=== PATIENT | male | born 1950 | race Caucasian/White ===

== ENCOUNTER 2019-07-10 08:02 | Outpatient (CLI) | payer MEDICARE, SELFPAY ==
[2019-07-10 09:04] LABS: Alanine Aminotransferase 16 U/L (4-50); Albumin Level 4.2 g/dL (3.5-5.1); Alkaline Phosphatase 48 U/L (38-126); Aspartate Amino Transferase 16 U/L (17-59); Bilirubin,Total 0.5 mg/dL (0.2-1.3); Blood Urea Nitrogen 22 mg/dL (9-20); Calcium 9.8 mg/dL (8.4-10.2); Carbon Dioxide 29 mmol/L (22-30); Chloride 101 mmol/L (98-107); Estimated Glomerular Filt Rate > 60; Glucose 186 mg/dL (75-110); Potassium 3.9 mmol/L (3.4-5.0); Sodium 140 mmol/L (137-145)
[2019-07-10 09:14] LABS: Hemoglobin A1C 8.5 % (<5.7)
== END 2019-07-10 08:03 | disposition home or self-care (01) ==
PROVIDERS: PCP Family Medicine; Visit Provider Family Medicine
DX: E11.9 Type 2 diabetes mellitus without complications (principal)
CPT/HCPCS: 36415; 80053; 83036

== ENCOUNTER 2019-11-14 07:38 | Outpatient (CLI) | payer MEDICARE, BC, SELFPAY ==
[2019-11-14 08:18] LABS: Hematocrit 43.5 % (42.0-52.0); Hemoglobin 14.2 g/dL (14.0-18.0); Mean Corpuscular HGB Conc 32.6 g/dl (32-36); Mean Corpuscular Hemoglobin 31.1 pg (26-34); Mean Corpuscular Volume 95.2 fl (80-100); Platelet Count Result 207 k/mm3 (150-375); Red Blood Count 4.57 M/mm3 (4.6-6.20); Red Cell Distribution Width 13.2 % (11.5-14.5); White Blood Count 7.2 K/mm3 (4.5-10.0)
[2019-11-14 08:23] LABS: Add Urine Microscopic? YES; Appearance Urine Clear (Clear); Bilirubin Urine Negative (Negative); Blood Urine Negative (Negative); Color Urine Straw (Yellow); Glucose Urine UA 3+ mg/dL (Negative); Ketones Urine Negative (Negative); Leukocyte Esterase Ur Negative LEU/UL (NEGATIVE); Mucus Urine Rare /lpf; Nitrate Urine Negative (Negative); Protein Urine Negative (Negative); Urobilinogen Urine Negative mg/dL (<2.0); WBC Urine 0-3 /hpf (0-3)
[2019-11-14 08:32] LABS: Alanine Aminotransferase 15 U/L (4-50); Albumin Level 4.3 g/dL (3.5-5.1); Alkaline Phosphatase 62 U/L (38-126); Aspartate Amino Transferase 17 U/L (17-59); Bilirubin,Total 0.4 mg/dL (0.2-1.3); Blood Urea Nitrogen 26 mg/dL (9-20); Calcium 9.2 mg/dL (8.4-10.2); Carbon Dioxide 25 mmol/L (22-30); Chloride 103 mmol/L (98-107); Cholesterol 162 mg/dL (0-200); Estimated Glomerular Filt Rate 55; Glucose 183 mg/dL (75-110); HDL Direct 42 mg/dL; Potassium 4.2 mmol/L (3.4-5.0); Sodium 137 mmol/L (137-145); Triglycerides 100 mg/dL (<150)
[2019-11-14 08:34] LABS: Hemoglobin A1C 8.4 % (<5.7)
[2019-11-14 08:42] LABS: LDL Cholesterol Direct 103 mg/dL
[2019-11-14 08:46] LABS: Iron 82 ug/dL (49-181)
[2019-11-14 08:48] LABS: Creatinine Urine 107.6 mg/dL
[2019-11-14 08:52] LABS: MALB Creatinine Ratio 9.2 mg/g (0-30); Microalbumin Urine Random 9.9 mg/L (0-16.7)
[2019-11-14 08:56] LABS: Percent Iron Saturation 22 % (20-50)
== END 2019-11-14 07:39 | disposition home or self-care (01) ==
LOC: ANHLAB 07:43
PROVIDERS: PCP Family Medicine; Visit Provider Family Medicine
DX: E78.2 Mixed hyperlipidemia (principal); E11.9 Type 2 diabetes mellitus without complications; I10 Essential (primary) hypertension; D64.9 Anemia, unspecified; R53.83 Other fatigue
CPT/HCPCS: 36415; 80053; 80061; 81001; 82043; 82607; 83036; 83540; 83550; 84443; 85027

== ENCOUNTER 2020-03-08 11:37 | Emergency (ER) | payer MEDICARE, BC, SELFPAY ==
--- NOTE | ~2020-03-08 | US_ITS ---
EXAMINATION:US venous doppler LE LT INDICATION:Left posterior knee pain TECHNIQUE: Multiple grayscale, color flow and Doppler images of the left lower extremity deep venous systems were obtained and reviewed. COMPARISON:No prior studies for comparison. FINDINGS: The common femoral, superficial femoral and popliteal veins demonstrate normal respiratory variation, augmentation and compressibility. Color flow is also seen within the posterior tibial, pe roneal, greater saphenous and profunda veins. IMPRESSION: 1: No lower extremity deep venous thrombosis. Reviewed, dictated and finalized at location A.
--- NOTE | ~2020-03-08 | XR_ITS ---
XR knee LT 3V 03/08/2020 12:17 Indication: Left knee pain Procedure: 3 views left knee Comparison: No prior studies for comparison. Findings: Mild patellofemoral compartment osteoarthritis. No fracture or traumatic malalignment. No s ignificant joint effusion. There are vascular calcifications. Impression: 1: No acute bone or joint abnormality. Reviewed, dictated and finalized at location A. Impression: 1: No acute bone or joint abnormality.
[2020-03-08 11:40] VITALS: BP 153/69; PULSE 94; RESP 20; TEMP 36.8; O2SAT 99
[2020-03-08] MEDS: KETOROLAC (*BKC) 60 MG/2 ML VIAL IM (12:58)
--- NOTE | 2020-03-08 13:10 | ED.LOWEXIN ---
HPI - Extremity Injury (Lower) General Chief Complaint: Extremity Injury, Lower <Patricia Jimenez PA-C - Last Filed: 03/08/20 14:14> Stated Complaint: Left Knee Pain <CHICHO Eden Last Filed: 03/08/20 14:14> Time Seen by Provider: 03/08/20 12:11 <Patricia Jimenez PA-C - Last Filed: 03/08/20 14:14> Source: patient <CHICHO Eden Last Filed: 03/08/20 14:14> Mode of arrival: wheelchair <CHICHO Eden Last Filed: 03/08/20 14:14> Limitations: no limitations <CHICHO Eden Last Filed: 03/08/20 14:14> History of Present Illness HPI Narrative: This is a 69 year old male that presents to the ER for left posterior knee pain x 2 days. No known injury or trauma. Reports it started after he was playing golf. He has taken some over the counter pain medication with little relief. Pain is worse with movement and relieved with rest. Denies fever, edema or erythema. <CHICHO Eden Last Filed: 03/08/20 14:14> Related Data Home Medications: Home Medications Medication Instructions Recorded Confirmed aspirin [Adult Low Dose Aspirin] 81 mg PO DAILY 03/08/20 <CHICHO Eden Last Filed: 03/08/20 14:14> Allergies/Adverse Reactions: Allergies Allergy/AdvReac Type Severity Reaction Status Date / Time No Known Allergies Allergy Verified 03/08/20 11:41 <CHICHO Edne Last Filed: 03/08/20 14:14> Review of Systems Review of Systems: Narrative: CONSTITUTIONAL: Denies fever SKIN: Denies rash MUSCULOSKELETAL: Reports joint pain, and myalgia. <CHICHO Eden Last Filed: 03/08/20 14:14> All systems reviewed & are unremarkable except as noted in HPI and below <CHICHO Eden Last Filed: 03/08/20 14:14> PMFSH Past Medical History Medical History: Medical History (Updated 03/08/20 @ 14:09 by Patricia Jimenez PA-C) Diabetes mellitus type 2, uncontrolled Essential (primary) hypertension History of colon polyps Long-term insulin use Pure hypercholesterolemia Type 2 diabetes mellitus with hyperglycemia, without long-term current use of insulin <Patricia Jimenez PA-C - Last Filed: 03/08/20 14:14> Surgical History Surgical History: Surgical History Status post right inguinal hernia repair <Patricia Jimenez PA-C - Last Filed: 03/08/20 14:14> Family History Family History: Family History Sibling Family history of type 1 diabetes mellitus <Patricia Jimenez PA-C - Last Filed: 03/08/20 14:14> Social History Social History: Social History Smoking status: Light tobacco smoker Tobacco type: cigars Second hand tobacco smoke exposure: No Alcohol intake: current Drinks per week: 3 Substance use: never Substance use type: does not use Gender identity (if verbalized by the patient): Male <Patricia Jimenez PA-C - Last Filed: 03/08/20 14:14> Exam Narrative: Exam Narrative: GENERAL: Well-appearing, well-nourished, and in no acute distress. HEAD: Normocephalic, atraumatic. EYES: EOMI. CHEST: Clear to auscultation. No respiratory distress. No wheezes rales or rhonchi HEART: Regular rate and rhythm. No murmur heard. Normal peripheral pulses. EXTREMITIES: Normal range of motion. No edema or erythema. Normal DP pulses. Normal sensation SKIN: Warm, dry, no rash. NEURO: No focal deficits. Alert and oriented x3. PSYCH: Normal mood and affect <Patricia Jimenez PA-C - Last Filed: 03/08/20 14:14> Course Vital Signs Vital signs: Vital Signs Temperature 36.8 C 03/08/20 11:40 Pulse Rate 94 03/08/20 11:40 Respiratory Rate 20 03/08/20 11:40 Blood Pressure 153/69 H 03/08/20 11:40 Pulse Oximetry 99 03/08/20 11:40 Temperature 36.8 C 03/08/20 11:40 Pulse Rate 94 03/08/20 11:40
[2020-03-08 15:36] VITALS: BP 156/71; PULSE 96; RESP 20; O2SAT 99
== END 2020-03-08 15:00 | disposition home or self-care (01) ==
PROVIDERS: Emergency Provider Emergency Medicine; PCP Family Medicine
DX: S83.92XA Sprain of unspecified site of left knee, initial encounter (principal); E11.9 Type 2 diabetes mellitus without complications; I10 Essential (primary) hypertension; Z79.4 Long term (current) use of insulin; E78.00 Pure hypercholesterolemia, unspecified; Z86.010 Personal history of colon polyps; F17.290 Nicotine dependence, other tobacco product, uncomplicated; X58.XXXA Exposure to other specified factors, initial encounter; Y93.53 Activity, golf
CPT/HCPCS: 73562; 93971; 96372; 99284; J1885

== ENCOUNTER 2020-03-15 09:05 | Outpatient (CLI) | payer MEDICARE, BC, SELFPAY ==
[2020-03-15 09:54] LABS: Hemoglobin A1C 7.7 % (<5.7)
[2020-03-15 10:01] LABS: Alanine Aminotransferase 15 U/L (4-50); Albumin Level 4.6 g/dL (3.5-5.1); Alkaline Phosphatase 66 U/L (38-126); Anion Gap 12 mmol/L (8-16); Aspartate Amino Transferase 18 U/L (17-59); Bilirubin,Total 0.5 mg/dL (0.2-1.3); Blood Urea Nitrogen 30 mg/dL (9-20); Calcium 9.8 mg/dL (8.4-10.2); Carbon Dioxide 26 mmol/L (22-30); Chloride 103 mmol/L (98-107); Estimated Glomerular Filt Rate 55; Glucose 172 mg/dL (75-110); Potassium 3.9 mmol/L (3.4-5.0); Sodium 141 mmol/L (137-145)
== END 2020-03-15 09:06 | disposition home or self-care (01) ==
PROVIDERS: PCP Family Medicine; Visit Provider Family Medicine
DX: E11.9 Type 2 diabetes mellitus without complications (principal)
CPT/HCPCS: 36415; 80053; 83036

== ENCOUNTER 2020-07-17 09:32 | Outpatient (CLI) | payer MEDICARE, BC, SELFPAY ==
[2020-07-17 10:02] LABS: Alanine Aminotransferase 17 U/L (4-50); Albumin Level 4.6 g/dL (3.5-5.1); Alkaline Phosphatase 60 U/L (38-126); Anion Gap 10 mmol/L (8-16); Aspartate Amino Transferase 19 U/L (17-59); Bilirubin,Total 0.8 mg/dL (0.2-1.3); Blood Urea Nitrogen 30 mg/dL (9-20); Calcium 9.8 mg/dL (8.4-10.2); Carbon Dioxide 29 mmol/L (22-30); Chloride 101 mmol/L (98-107); Estimated Glomerular Filt Rate 50; Glucose 176 mg/dL (75-110); Potassium 3.7 mmol/L (3.4-5.0); Sodium 140 mmol/L (137-145)
[2020-07-17 10:06] LABS: Hemoglobin A1C 7.9 % (<5.7)
== END 2020-07-17 09:33 | disposition home or self-care (01) ==
PROVIDERS: PCP Family Medicine; Visit Provider Nurse Practitioner Family
DX: E11.65 Type 2 diabetes mellitus with hyperglycemia (principal); I10 Essential (primary) hypertension; Z79.4 Long term (current) use of insulin
CPT/HCPCS: 36415; 80053; 83036

== ENCOUNTER 2020-11-20 07:22 | Outpatient (CLI) | payer MEDICARE, BC, SELFPAY ==
[2020-11-20 08:03] LABS: Hemoglobin A1C 8.2 % (<5.7)
[2020-11-20 08:06] LABS: Alanine Aminotransferase 15 U/L (4-50); Albumin Level 4.4 g/dL (3.5-5.1); Alkaline Phosphatase 57 U/L (38-126); Anion Gap 10 mmol/L (8-16); Aspartate Amino Transferase 18 U/L (17-59); Bilirubin,Total 0.5 mg/dL (0.2-1.3); Blood Urea Nitrogen 23 mg/dL (9-20); Calcium 9.9 mg/dL (8.4-10.2); Carbon Dioxide 28 mmol/L (22-30); Chloride 104 mmol/L (98-107); Estimated Glomerular Filt Rate 60; Glucose 162 mg/dL (75-110); Potassium 3.3 mmol/L (3.4-5.0); Sodium 142 mmol/L (137-145)
== END 2020-11-20 07:23 | disposition home or self-care (01) ==
PROVIDERS: PCP Family Medicine; Visit Provider Family Medicine
DX: E11.9 Type 2 diabetes mellitus without complications (principal); E78.00 Pure hypercholesterolemia, unspecified; I10 Essential (primary) hypertension; Z79.4 Long term (current) use of insulin
CPT/HCPCS: 36415; 80053; 83036

== ENCOUNTER 2021-03-25 07:35 | Outpatient (CLI) | payer MEDICARE, BC, SELFPAY ==
[2021-03-25 08:20] LABS: Alanine Aminotransferase 25 U/L (4-50); Albumin Level 4.3 g/dL (3.5-5.1); Alkaline Phosphatase 49 U/L (38-126); Anion Gap 10 mmol/L (8-16); Aspartate Amino Transferase 24 U/L (17-59); Bilirubin,Total 0.5 mg/dL (0.2-1.3); Blood Urea Nitrogen 22 mg/dL (9-20); Calcium 9.4 mg/dL (8.4-10.2); Carbon Dioxide 27 mmol/L (22-30); Chloride 104 mmol/L (98-107); Cholesterol 133 mg/dL (0-200); Estimated Glomerular Filt Rate > 60; Glucose 150 mg/dL (65-110); HDL Direct 46 mg/dL; Potassium 3.5 mmol/L (3.4-5.0); Sodium 141 mmol/L (137-145); Triglycerides 95 mg/dL (<150)
[2021-03-25 08:31] LABS: LDL Cholesterol Direct 65 mg/dL
[2021-03-25 08:43] LABS: Hematocrit 41.8 % (42.0-52.0); Hemoglobin 13.9 g/dL (14.0-18.0); Mean Corpuscular HGB Conc 33.3 g/dl (32-36); Mean Corpuscular Hemoglobin 31.4 pg (26-34); Mean Corpuscular Volume 94.6 fl (80-100); Mean Platelet Volume 11.5 fl (7.4-10.4); Platelet Count Result 200 k/mm3 (150-375); Red Blood Count 4.42 M/mm3 (4.6-6.20); Red Cell Distribution Width 13.8 % (11.5-14.5); White Blood Count 6.1 K/mm3 (4.5-10.0)
[2021-03-25 09:06] LABS: Add Urine Microscopic? YES; Appearance Urine Clear (Clear); Bilirubin Urine Negative (Negative); Blood Urine Negative (Negative); Color Urine Yellow (Yellow); Glucose Urine UA 2+ mg/dL (Negative); Ketones Urine Negative (Negative); Leukocyte Esterase Ur Negative LEU/UL (NEGATIVE); Mucus Urine Rare /lpf; Nitrate Urine Negative (Negative); Protein Urine Negative (Negative); RBC Urine 0-2 /hpf (0-2); Specific Grav Ur 1.023 (1.001-1.035); Urobilinogen Urine Negative mg/dL (<2.0); WBC Urine 0-3 /hpf (0-3)
[2021-03-25 09:27] LABS: Creatinine Urine 138.4 mg/dL
[2021-03-25 09:46] LABS: Microalbumin Urine Random 31.8 mg/L (0-16.7)
== END 2021-03-25 07:36 | disposition home or self-care (01) ==
PROVIDERS: PCP Family Medicine; Visit Provider Family Medicine
DX: E11.9 Type 2 diabetes mellitus without complications (principal); E78.00 Pure hypercholesterolemia, unspecified; I10 Essential (primary) hypertension; Z79.4 Long term (current) use of insulin
CPT/HCPCS: 36415; 80053; 80061; 81001; 82043; 83036; 84443; 85027

== ENCOUNTER 2021-07-31 07:07 | Outpatient (CLI) | payer MEDICARE, BC, SELFPAY ==
[2021-07-31 07:38] LABS: Alanine Aminotransferase 16 U/L (4-50); Albumin Level 4.3 g/dL (3.5-5.1); Alkaline Phosphatase 49 U/L (38-126); Anion Gap 8 mmol/L (8-16); Aspartate Amino Transferase 27 U/L (17-59); Bilirubin,Total 0.6 mg/dL (0.2-1.3); Blood Urea Nitrogen 26 mg/dL (9-20); Calcium 9.5 mg/dL (8.4-10.2); Carbon Dioxide 32 mmol/L (22-30); Chloride 101 mmol/L (98-107); Estimated Glomerular Filt Rate 60; Glucose 121 mg/dL (65-110); Potassium 3.3 mmol/L (3.4-5.0); Sodium 141 mmol/L (137-145)
[2021-07-31 07:53] LABS: Hemoglobin A1C 6.7 % (<5.7)
== END 2021-07-31 07:08 | disposition home or self-care (01) ==
PROVIDERS: PCP Family Medicine; Visit Provider Family Medicine
DX: E11.9 Type 2 diabetes mellitus without complications (principal); Z79.4 Long term (current) use of insulin
CPT/HCPCS: 36415; 80053; 83036

== ENCOUNTER 2021-08-05 09:21 | Observation (INO) | payer MEDICARE, BC, SELFPAY ==
[2021-08-05] VITALS (29 sets, daily range): BP systolic 123–158; BP diastolic 63–81; PULSE 72–119; RESP 14–35; TEMP 36.4–36.6; O2SAT 94–99; BMI 40.2
--- NOTE | ~2021-08-05 | MR_ITS ---
EXAMINATION: MR brain/brain stem wo con DATE: 08/06/2021 12:45 INDICATION: Transient right peripheral vision loss. Right-sided numbness. TECHNIQUE: Magnetic resonance imaging (MRI) of the brain and brainstem was performed without intraven ous contrast. Sequences included sagittal and axial T1-weighted FSE, axial diffusion-weighted FS EPI, axial T2*-weighted GRE, axial T2-weighted FLAIR Propeller, and axial T2-weighted Propeller. Apparent diffusion coefficient (ADC) maps were created. COMPARISON: Head CT 08/05/2021 FINDINGS: There are scattered areas of nonspecific increased T2-weighted signal intensity in the cere bral white matter. There is an old infarct in right frontal lobe. There are small old infarcts in rig ht cerebellum. There is no intracranial hemorrhage, acute infarction, or abnormal intracranial mass l esion. The ventricles are normal in size. The orbits are normal. The paranasal sinuses are clear. The mastoid air cells are normal. IMPRESSION: 1. 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 2. Mild nonspecific cerebral white matter disease, which likely represents chronic small vessel ische nawaf disease. Reviewed, dictated and finalized at location A. NER IMPRESSION: 1. 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 2. Mild nonspecific cerebral white matter disease, which likely represents stave inspector nicole small vessel ischemic disease.
--- NOTE | ~2021-08-05 | XR_ITS ---
EXAMINATION: XR chest 1V portable EXAM DATE: 08/05/2021 09:46 INDICATION: R sided weakness. TECHNIQUE: Portable AP frontal chest x-ray was obtained. Comparison is made to prior examination from 02/27/2017. FINDINGS: The lungs are clear. There are no pleural effusions. Cardiac silhouette is prominent but magnified on this AP technique. There is no pneumothorax suspected. The bones and soft tissues are unremarkable. IMPRESSION: No acute cardiopulmonary findings. Reviewed, dictated and finalized at location A. HETIC DEPARTMENT SUPERVISOR
--- NOTE | ~2021-08-05 | CT_ITS ---
EXAMINATION: CTA brain carotid EXAM DATE: 08/05/2021 10:51 INDICATION: R sided weakness. Right eye vision loss, right arm numbness TECHNIQUE: Noncontrast head CT. Spiral CTA of the carotid arteries was performed with intravenous i njection 100 cc of Omnipaque 350. Axial, coronal, sagittal reformatted images reviewed. Additional r eformatted images created on dedicated 3-D workstation. NASCET comparable standard used to assess th e degree of arterial stenosis. Spiral CT angiogram cerebral arteries performed with the same intrave nous injection of contrast. Source images of the brain CTA transferred to dedicated workstation for 3 -D rotational image creation. Coronal, sagittal maximum intensity pixel images also reviewed. The d ose-length product (DLP) for this examination was 1833.72 mGy-cm. The exposure was tailored accordi ng to patient size, and iterative reconstruction (ASIR) was used as additional dose reduction techniq ue. There is no prior study for comparison. FINDINGS: Mild right, minimal left carotid bulb arteriosclerosis, 0% stenosis bilaterally. The left v ertebral artery is dominant. Along the left parasellar portion of the ICA there is short segment 50% stenosis. Circumferential arterial sclerosis of both carotid siphons, only mild stenosis. There is n o carotid or vertebral basilar arterial dissection or fibromuscular dysplasia. There are no cerebral artery aneurysms. There is symmetric cerebral artery arborization. The sagittal, transverse and sigmo id sinuses enhance normally, no venous sinus thrombosis. Internal cerebral veins also enhance normall y. There is no acute intraparenchymal hemorrhage. No evidence of intraparenchymal brain mass lesion. N o evidence of acute infarction. There is mild periventricular and subcortical hypodensity, nonspecifi c but probably related to small vessel ischemic disease. There is no mass effect or midline shif t. There is no obstructive hydrocephalus suspected. There are no extra-axial collections. Incidental Findings: Mild cervical spondylosis. IMPRESSION: 1. No acute carotid or intracranial findings. 2. Bilateral carotid bulb 0% stenosis. 3. Short segment left parasellar ICA 50% stenosis. 4. Mild microangiopathy. Reviewed, dictated and finalized at location A. RMEDIATE ACCOUNTANT
--- NOTE | 2021-08-05 09:30 | ECG_ITS ---
Measurements Intervals [place] Rate: 93 P: NV: 0 QRS: 7 QRSD: 89 T: 0 QT: 353 QTc: 439 Interpretive Statements ATRIAL FIBRILLATION WITH ABERRANT CONDUCTION OR VENTRICULAR PREMATURE COMPLEXES ABNORMAL ECG NO PREVIOUS ECG AVAILABLE FOR COMPARISON Electronically Signed On 08-05-2021 13:22:48 TITLE CAMERA OPERATOR by Delgado Casey M.D.
--- NOTE | 2021-08-05 09:34 | ED.GENADULT ---
HPI - General Adult General Chief complaint: Neuro Symptoms/Deficit Stated complaint: R EYE VISION LOSS Time Seen by Provider: 08/05/21 09:30 Source: RN notes reviewed History of Present Illness HPI narrative: Patient presents emergency department from home for vision loss. Patient states approximately 8 AM he began to experience vision loss out of the right side of his right eye as well as numbness in his right arm and right face states that this began approximately 8 AM and is now resolved he denies any weakness over on the right side denies any fevers or chills chest pain shortness of breath abdominal pain nausea vomiting or any other symptoms. States vision is back to normal at this time patient denies having any weakness in the right arm or leg Related Data Home Medications Medication Instructions Recorded Confirmed aspirin [Adult Low Dose Aspirin] 81 mg PO DAILY 03/08/20 04/01/21 insulin glargine [Basaglar KwikPen 36 unit SUB-Q QPM 08/05/21 U-100 Insulin] Allergies Allergy/AdvReac Type Severity Reaction Status Date / Time No Known Allergies Allergy Verified 04/01/21 08:43 Review of Systems Review of Systems: Gen.: Denies fevers or chills Eyes: See HPI ENT: Denies congestion Respiratory: Denies shortness of breath or cough CV: Denies chest pain or palpitations GI: Denies abdominal pain nausea, emesis or diarrhea Musculoskeletal: Denies back pain or muscle pain Neuro: Reports right-sided numbness Skin: Denies rash Except as documented, all other systems reviewed and negative PMF Past Medical History Medical History Essential (primary) hypertension History of colon polyps Long-term insulin use Obesity Pure hypercholesterolemia Type 2 diabetes mellitus with hyperglycemia, without long-term current use of insulin Surgical History Surgical History Status post right inguinal hernia repair Family History Family History Sibling Family history of type 1 diabetes mellitus Social History Social History Years smoked: 10 Smoking status: Current some day smoker Tobacco type: cigars Second hand tobacco smoke exposure: No Alcohol intake: current Drinks per week: 3 Substance use: never Substance use type: does not use Gender identity (if verbalized by the patient): Male Sexual Orientation (if Verbalized by the Patient): Straight or Heterosexual Exam Narrative: APPEARANCE: No acute distress, nontoxic, resting in bed HEENT: Normocephalic, atraumatic, OMM, TMs clear bilaterally EYES: PERRL, EOMI NECK: Supple, nontender, full range of motion without pain, no meningismus RESPIRATORY: No respiratory distress, clear to auscultation bilaterally with no rhonchi wheezing or rales CARDIOVASCULAR: RRR s murmur ABDOMINAL: Soft, nontender, nondistended MUSCULOSKELETAL: Moves all extremities. No clubbing, cyanosis or edema. NEURO: A and O ?3, following commands, speech normal, cranial nerves II through XII grossly intact,muscle strength 5 out of 5 bilateral upper and lower extremities, all visual lieberman intact SKIN:: Warm, dry. Normal Color PSYCHIATRIC: Normal affect/mood Course Course Emergency Course: Discussed with Dr. Najera recommends anticoagulation for A. fib and will follow as inpatient Discussed with Dr. Casey agrees with consult request Jian Gonzales for Dr. Treviño agrees with admission Discussed with patient and family results of workup and diagnosis. Discussed need for admission. Patient and family understand and agree to current treatment plan Vital Signs Vital signs: Vital Signs Temperature 97.5 F L 08/05/21 09:21 Pulse Rate 106 H 08/05/21 09:21 Respiratory Rate 22 H 08/05/21 09:21 Blood Pressure 158/72 H 08/05/21 09:21 Pulse Oximetry 99
[2021-08-05 09:56] LABS: Basophils Absolute Auto 0.1 K/mm3 (0.0-0.1); Basophils Percent Auto 0.8 % (0.2-1.2); Eosinophils Absolute Auto 0.2 K/mm3 (0-0.3); Eosinophils Percent Auto 3.2 % (0-4.4); Hematocrit 49.6 % (42.0-52.0); Hemoglobin 16.2 g/dL (14.0-18.0); Immature Granulocyte Absolute 0.04 K/mm3 (0.00-0.031); Immature Granulocyte Percent A 0.6 % (0-0.5); Lymphocytes Absolute Auto 2.37 K/mm3 (0.9-3.2); Lymphocytes Percent Auto 36.5 % (18.3-44.2); Mean Corpuscular HGB Conc 32.7 g/dl (32-36); Mean Corpuscular Hemoglobin 31.5 pg (26-34); Mean Corpuscular Volume 96.3 fl (80-100); Mean Platelet Volume 10.7 fl (7.4-10.4); Monocytes Absolute Auto 0.6 K/mm3 (0.1-0.6); Monocytes Percent Auto 8.6 % (2.6-8.5); Neutrophils Absolute Auto 3.3 K/mm3 (1.3-6.7); Neutrophils Percent Auto 50.3 % (45.5-73.1); Platelet Count Result 198 k/mm3 (150-375); Red Blood Count 5.15 M/mm3 (4.6-6.20); Red Cell Distribution Width 13.5 % (11.5-14.5); White Blood Count 6.5 K/mm3 (4.5-10.0)
[2021-08-05 10:06] LABS: Partial Thromboplastin Time 26.9 SECONDS (22.3-36.8); Prothrombin Time 12.4 Seconds (11.1-14.7)
[2021-08-05 10:14] LABS: Alanine Aminotransferase 19 U/L (4-50); Albumin Level 4.9 g/dL (3.5-5.1); Alkaline Phosphatase 58 U/L (38-126); Anion Gap 12 mmol/L (8-16); Aspartate Amino Transferase 23 U/L (17-59); Bilirubin,Total 0.7 mg/dL (0.2-1.3); Blood Urea Nitrogen 17 mg/dL (9-20); Calcium 9.8 mg/dL (8.4-10.2); Carbon Dioxide 24 mmol/L (22-30); Chloride 103 mmol/L (98-107); Estimated CRCL calculation 72 ml/min; Estimated Glomerular Filt Rate > 60; Glucose 151 mg/dL (65-110); Potassium 3.6 mmol/L (3.4-5.0); Sodium 139 mmol/L (137-145)
[2021-08-05 10:26] LABS: Troponin I < 0.012 ng/mL (0.000-0.034)
[2021-08-05] MEDS: RIVAROXABAN 20 MG TABLET PO (13:36)
--- NOTE | 2021-08-05 14:48 | WPDNEUROPN ---
Progress Note: A&P Additional Plan 1continue xarelto 2.obtain mri brain3.considering intracranial stenosis needs to comply with atorvastatin and particularly higher dosage Subjective Date/time seen: 08/05/21 14:48 71 years old presented to emergency room with information that around 8:00 a.m. he lost vision out of the right side of his right eye along with the numbness in right upper extremity and right side of the face which subsequently resolved and had no associated weakness of the right side and also with no history of recent generalized symptomatology, patient has been taking aspirin 81 mg daily, and is has insulin-dependent diabetic, at present everyday smoker of cigars also drinks 3 drinks per week and does not have any substance abuse, noted to have atrial fibrillation in the emergency room was started on the anticoagulation that is Xarelto, chest x-ray negative, head and neck CTA negative except short segment left parasellar ICA 50% stenosis and mild microangiopathy medications particularly included atorvastatin 20 mg daily losartan 50 mg daily amlodipine 10 mg daily and aspirin 81 mg daily in addition to metformin PO bleeders own as an outpatient Review of Systems Review of Systems: All systems reviewed & are unremarkable except as noted in HPI and below Objective Data Vital Signs Vital Signs: Vital Signs - 24 hr 08/05/21 09:21 08/05/21 10:30 08/05/21 11:19 Temperature 36.4 C L Pulse Rate 106 H 92 91 Respiratory Rate 22 H 14 16 Blood Pressure 158/72 H 131/63 Pulse Oximetry 99 97 98 08/05/21 11:30 08/05/21 11:41 08/05/21 11:45 Temperature Pulse Rate 92 119 H 88 Respiratory Rate 29 H 27 H 23 H Blood Pressure 128/72 Pulse Oximetry 97 97 97 08/05/21 11:46 08/05/21 12:00 08/05/21 12:01 Temperature Pulse Rate 85 102 H 98 Respiratory Rate 22 H 19 21 H Blood Pressure 126/72 127/81 Pulse Oximetry 97 97 97 08/05/21 12:15 08/05/21 12:16 08/05/21 12:31 Temperature Pulse Rate 89 93 92 Respiratory Rate 25 H 21 H 18 Blood Pressure 123/69 Pulse Oximetry 98 97 97 08/05/21 12:45 08/05/21 13:00 08/05/21 13:01 Temperature Pulse Rate 100 87 109 H Respiratory Rate 24 H 19 19 Blood Pressure 130/73 Pulse Oximetry 97 97 98 08/05/21 13:19 08/05/21 13:37 Temperature Pulse Rate 96 95 Respiratory Rate 21 H 35 H Blood Pressure Pulse Oximetry 97 Meds/Results Radiology Results: ITS Impressions Chest X-Ray 08/05/21 09:50 IMPRESSION: No acute cardiopulmonary findings. Head/Neck CTA 08/05/21 11:02 IMPRESSION: 1. No acute carotid or intracranial findings. 2. Bilateral carotid bulb 0% stenosis. 3. Short segment left parasellar ICA 50% stenosis. 4. Mild microangiopathy. Labs Labs: Laboratory Results - last 24 hr 08/05/21 08/05/21 08/05/21 09:39 09:39 09:39 WBC 6.5 RBC 5.15 Hgb 16.2 Hct 49.6 MCV 96.3 MCH 31.5 MCHC 32.7 RDW 13.5 Plt Count 198 MPV 10.7 H Immature Gran % (Auto) 0.6 H Neut % (Auto) 50.3 Lymph % (Auto) 36.5 [place] % (Auto) 8.6 H Eos % (Auto) 3.2 Baso % (Auto) 0.8 Lymph # (Auto) 2.37 [place] # (Auto) 0.6 Eos # (Auto) 0.2 Baso # (Auto) 0.1 Abs Immat Gran (auto) 0.04 H Absolute Neuts (auto) 3.3 Absolute Nucleated RBC 0.0 Nucleated RBC % 0.0 PT 12.4 INR 1.0 APTT 26.9 Sodium 139 Potassium 3.6 Chloride 103 Carbon Dioxide 24 Anion Gap 12 BUN 17 Creatinine 1.00 Estim Creat Clear Calc 72 Estimated GFR > 60 Glucose 151 H Calcium 9.8 Total Bilirubin 0.7 AST 23 ALT 19 Alkaline Phosphatase 58 Troponin I < 0.012 Total Protein 8.0 Albumin 4.9
--- NOTE | 2021-08-05 15:30 | PM.IMHP ---
H&P: HPI History of Present Illness Date/Time: 08/05/21 15:30 Chief Complaint: Right arm numbness and vision loss. Narrative: This is a 71-year-old male with insulin-dependent diabetes who presented to the emergency department via EMS from home for evaluation of right arm numbness and vision loss. The patient reports that at approximately 08:00 he had progressive vision loss out of periphery his right eye associated with numbness in the right side of his face and arm. He felt a bit nauseated at that time as well. The symptoms lasted an hour or less and they had nearly resolved by the time that he arrived to the emergency department. CTA of the head and neck showed no acute carotid or intracranial findings with 0% bilateral carotid bulb stenosis though there was a short segment along the left parasellar portion of the ICA which showed showed 50% stenosis. He was also found to be in atrial fibrillation which is a new diagnosis for the patient, of which he has no symptoms. Specifically he has not had sensations of racing heart, palpitations, or fluttering in the chest. At the time my evaluation he is resting comfortably and he has no complaints. He denies headache, vertigo, auditory changes, current visual changes, facial droop, dysarthria, dysphagia, focal weakness, and paresthesias. He also denies chest pain, pleuritic pain, and shortness of breath. Review of Systems Review of Systems: Twelve systems were reviewed. No fever, chills, or sweats. No recent cold or flu symptoms. No history of sleep apnea however his thinks he likely does have sleep apnea as she has witnesses of to 22nd periods of apnea while the patient sleeps. He also snores quite heavily. He drinks perhaps 2 cups of coffee or tea a day and perhaps a couple of diet sodas. He will have 2 or 3 alcoholic beverages when golfing. He denies orthopnea, paroxysmal nocturnal dyspnea, and lower extremity edema. Except as documented, all other systems were reviewed and are negative. [facility] Past Medical History Medical History Essential (primary) hypertension History of colon polyps Insulin dependent type 2 diabetes mellitus Pure hypercholesterolemia Surgical History Surgical History (Updated 08/05/21 @ 14:34 by Janet Cervantes PA-C) History of right inguinal hernia repair Family History Family History Sibling Family history of type 1 diabetes mellitus Social History Social History (Updated 08/05/21 @ 20:58 by Janet Cervantes PA-C) Social History: Surrogate decision maker: Denise Ly, spouse. Code status: Full code. Years smoked: 10 Smoking status: Current some day smoker Tobacco type: cigars Second hand tobacco smoke exposure: No Additional smoking assessment comments: Pt smokes occasional cigar while on the golf [place]. Alcohol intake: current Drinks per week: 3 Substance use: never Substance use type: does not use Living arrangements: with family Additional living arrangements comments: The patient lives with his in [place]. Occupation/Education: retired Additional occupation/education comments: Retired from working in a [employer]. Meds Home Medications and Allergies Home Medications Medication Instructions Recorded Confirmed Type lancets 28 gauge #200 each 01/07/20 08/05/21 Rx aspirin [Adult Low Dose Aspirin] 81 mg PO BID 03/08/20 08/05/21 History pen needle, diabetic 29 gauge x See Rx Instructions .ROUTE 12/01/20 08/05/21 Rx 1/2 .COMPLEX #100 syringe blood sugar diagnostic See Rx Instructions .ROUTE 01/05/21 08/05/21 Rx .COMPLEX #200 strip losartan 50 mg tablet 50 mg PO DAILY #90 tablet 06/01/21 08/05/21 Rx amlodipine 10 mg PO DAILY 08/05/21 08/05/21 History atorvastatin 20 mg PO HS 08/05/21 08/05/21 History hydrochlorothiazide 25 mg PO DAILY 08/05/21 08/05/21 History insulin glargine [
[2021-08-05 16:23] LABS: Troponin I < 0.012 ng/mL (0.000-0.034)
[2021-08-05 16:48] LABS: Glucose Point of Care 182 mg/dl (65-105)
--- NOTE | 2021-08-05 17:24 | ADMGEN ---
This patient, Kevin Ly, was admitted to IMU Room 203-01. Patient/family oriented to hospital policies and general routines including ID bracelet, bed and alarms, visiting hours, pain management, procedures, bathroom and other care routines, personal items, smoking policy, room service/diet, and visiting hours. Information on how to activate the Rapid Response Team has been discussed. Patient/Family are encouraged to report perceived risks to care and to ask questions if they do not understand what they are told or what they should do.
[2021-08-05 18:58] LABS: Troponin I < 0.012 ng/mL (0.000-0.034)
[2021-08-05 20:20] LABS: Glucose Point of Care 195 mg/dl (65-105)
[2021-08-05 21:46] LABS: Hemoglobin A1C 6.7 % (<5.7)
[2021-08-05] MEDS: INSULIN GLARGINE (*BKC) 100 UNITS/ML 40 UNITS SUB-Q (22:00)
[2021-08-06] VITALS (9 sets, daily range): BP systolic 121–126; BP diastolic 50–63; PULSE 72–96; RESP 20–28; TEMP 36.6–37.1; O2SAT 95–97
[2021-08-06 07:00] LABS: Basophils Absolute Auto 0.1 K/mm3 (0.0-0.1); Basophils Percent Auto 0.9 % (0.2-1.2); Eosinophils Absolute Auto 0.2 K/mm3 (0-0.3); Eosinophils Percent Auto 3.3 % (0-4.4); Hematocrit 47.2 % (42.0-52.0); Hemoglobin 15.4 g/dL (14.0-18.0); Immature Granulocyte Absolute 0.04 K/mm3 (0.00-0.031); Immature Granulocyte Percent A 0.7 % (0-0.5); Lymphocytes Absolute Auto 1.81 K/mm3 (0.9-3.2); Lymphocytes Percent Auto 31.3 % (18.3-44.2); Mean Corpuscular HGB Conc 32.6 g/dl (32-36); Mean Corpuscular Hemoglobin 31.6 pg (26-34); Mean Corpuscular Volume 96.9 fl (80-100); Mean Platelet Volume 10.7 fl (7.4-10.4); Monocytes Absolute Auto 0.6 K/mm3 (0.1-0.6); Monocytes Percent Auto 10.2 % (2.6-8.5); Neutrophils Absolute Auto 3.1 K/mm3 (1.3-6.7); Neutrophils Percent Auto 53.6 % (45.5-73.1); Platelet Count Result 195 k/mm3 (150-375); Red Blood Count 4.87 M/mm3 (4.6-6.20); Red Cell Distribution Width 13.8 % (11.5-14.5); White Blood Count 5.8 K/mm3 (4.5-10.0)
[2021-08-06 07:02] LABS: Anion Gap 7 mmol/L (8-16); Blood Urea Nitrogen 16 mg/dL (9-20); Calcium 9.5 mg/dL (8.4-10.2); Carbon Dioxide 30 mmol/L (22-30); Chloride 101 mmol/L (98-107); Cholesterol 157 mg/dL (0-200); Estimated CRCL calculation 68 ml/min; Estimated Glomerular Filt Rate > 60; Glucose 142 mg/dL (65-110); HDL Direct 45 mg/dL; Magnesium 1.8 mg/dL (1.6-2.3); Potassium 3.8 mmol/L (3.4-5.0); Sodium 138 mmol/L (137-145); Triglycerides 113 mg/dL (<150)
[2021-08-06 07:12] LABS: LDL Cholesterol Direct 82 mg/dL
[2021-08-06 07:50] LABS: Glucose Point of Care 155 mg/dl (65-105)
[2021-08-06] MEDS: amLODIPine BESYLATE 5 MG TABLET 10 MG PO (08:33)
[2021-08-06] MEDS: ASPIRIN 81 MG ENTERIC TABLET PO ×2 (08:33→18:18)
[2021-08-06] MEDS: hydroCHLOROthiazide 25 MG TABLET PO (08:34)
[2021-08-06] MEDS: LOSARTAN POTASSIUM 50 MG TABLET PO (08:34)
[2021-08-06] MEDS: ATORVASTATIN 40 MG TABLET 80 MG PO (08:34)
--- NOTE | 2021-08-06 10:01 | PM.CNCAR ---
Assessment and Plan Assessment and plan (1) Atrial fibrillation, new onset: Code(s): I48.91 - Unspecified atrial fibrillation Status: Acute Assessment and Plan: New diagnosis asymptomatic atrial fibrillation with relatively controlled ventricular response without AV aurelio blocking agents of unknown duration. Add metoprolol tartrate 25 mg twice daily. Xarelto 20 mg at bedtime. Neurosurgery recommended addition of aspirin 81 mg daily in addition to Xarelto. CHADS2 Vasc score 6. Patient high risk for recurrent embolic stroke due to atrial fibrillation. Systemic anticoagulation advised. Discussed bleeding risk versus embolic stroke risk reduction anticoagulation. Patient verbalized understanding. Explained pathophysiology of atrial fibrillation in detail. Indications proceed with JACOB present as will not change our management at this time given initiation of systemic anticoagulation. We discussed possibility and likelihood of intracardiac thrombus related to atrial fibrillation as contribution to stroke and TIA symptoms. 2D echo personally reviewed technically difficult study no evidence for [id number] shunt or PFO/ASD although suboptimal study. EF preserved, moderate left atrial enlargement. We discussed rate control versus rhythm control strategies. Given unknown duration, TIA with evidence of old CVA, left atrial enlargement would not be advised to pursue cardioversion in attempt to restore sinus rhythm particular as patient is completely asymptomatic in this regard. I suspect he has had atrial fibrillation for longer than appreciated but unable to determine. Patient stable from cardiac perspective at this time. Disposition per hospitalist service. Patient will follow-up with me in the office in 4 weeks. Able to be discharged from cardiac perspective today if okay with Neurology. We discussed the benefit with anticoagulation in the importance of compliance in this regard. 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 (3) Transient ischemic attack: Code(s): G45.9 - Transient cerebral ischemic attack, unspecified Status: Acute Assessment and Plan: Symptoms completely resolved. MRI brain consistent with old infarcts in the right frontal lobe and right cerebellum. Mechanism very likely related to atrial fibrillation of unknown duration. (4) Insulin dependent type 2 diabetes mellitus: Code(s): E11.9 - Type 2 diabetes mellitus without complications; Z79.4 - snf (current) use of insulin Status: Acute Assessment and Plan: Per primary service. 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 Goal LDL less than 70. (7) Suspected sleep apnea: Code(s): R29.818 - Other symptoms and signs involving the nervous system Status: Acute Assessment and Plan: Apnea link severely abnormal with AHI 34 strongly suggestive of clinically significant SURY. Outpatient sleep study critically important. Discussed this contribution to increased risk for arrhythmias/A. Fib among many other associated problems. History of Present Illness History of Present Illness Consult date/time: DATE OF SERVICE: 08/06/21 10:01 Cardiology consultation at the request of Janet Cervantes for opinion regarding new diagnosis atrial
[2021-08-06] MEDS: PERFLUTREN LIPID MICROSPHERES 1.5 ML VIAL DILUTED TO 10 ML TOTAL VOLUME IV PUSH (11:44)
--- NOTE | 2021-08-06 11:45 | IVDEFINITY ---
Prior to administration of IV Definity the patient was educated on the risks and benefits of the imaging enhancing agent including potential adverse side effects. The patient verbalized understanding. Allergies were verified. No exclusion criteria were identified and at least one of the following inclusion criteria were met: 1) physician request, 2) patient technically difficult to image (per the [place] [employer] Echocardi[employer] guidelines of two or more segments not discernable within the apical view), or 3) questionable left ventricular function. ?
[2021-08-06 12:02] LABS: Glucose Point of Care 205 mg/dl (65-105)
[2021-08-06] MEDS: INSULIN ASPART (*BKC) 100 UNITS/ML SUB-Q (12:14)
--- NOTE | 2021-08-06 12:27 | WPDNEURCNPN ---
Assessment and Plan Additional Plan 1 TIA 2 left parasellar intracardiac artery 50% stenosis would add Plavix to aspirin in addition to ongoing cholesterol treatment but patient has new onset atrial fibrillation and if after cardiology consultations obtained obviously benefit from the anticoagulation therapy along with the cholesterol treatment Consult date: 08/06/21 HPI: Kevin Ly is a 71 year old male presented to emergency room with information that around 8:00 a.m. he lost vision out of his right side of his right eye along with numbness in the right upper extremity and right side of the face wich subsequently resolved and had no associated weakness of right side also with no history of recent generalized symptomatology. Patient had been taking aspirin 81 mg daily and has been insulin dependent for diabetic treatment, presently every day smoker of cigars,also drinks 3 drinks per week and has not have any substance abuse ,noted to have atrial fibrillation in the emergency room was started on the anticoagulation therapy , chest x-ray was negative, head neck CTA was negative except short-segment left parasellar ICA 50% stenosis and mild microangiopathy. medications included atorvastatin 20 mg daily amlodipine 10 mg daily and aspirin 81 mg daily in addition to metformin. Review of Systems Review of Systems: All systems reviewed & are unremarkable except as noted in HPI and below PMFSH Past Medical History Medical History Essential (primary) hypertension History of colon polyps Insulin dependent type 2 diabetes mellitus Pure hypercholesterolemia Surgical History Surgical History History of right inguinal hernia repair Family History Family History Sibling Family history of type 1 diabetes mellitus Social History Social History Social History: Surrogate decision maker: Denise Ly, spouse. Code status: Full code. Years smoked: 10 Smoking status: Current some day smoker Tobacco type: cigars Second hand tobacco smoke exposure: No Additional smoking assessment comments: Pt smokes occasional cigar [place] the [place]. Alcohol intake: current Drinks per week: 3 Substance use: never Substance use type: does not use Living arrangements: with family Additional living arrangements comments: The patient lives with his in [place]. Occupation/Education: retired Additional occupation/education comments: Retired from working in a [employer]. Meds Home Medications and Allergies Home Medications Medication Instructions Recorded Confirmed Type lancets 28 gauge #200 each 01/07/20 08/05/21 Rx aspirin [Adult Low Dose Aspirin] 81 mg PO BID 03/08/20 08/05/21 History pen needle, diabetic 29 gauge x See Rx Instructions .ROUTE 12/01/20 08/05/21 Rx 1/2 .COMPLEX #100 syringe blood sugar diagnostic See Rx Instructions .ROUTE 01/05/21 08/05/21 Rx .COMPLEX #200 strip losartan 50 mg tablet 50 mg PO DAILY #90 tablet 06/01/21 08/05/21 Rx amlodipine 10 mg PO DAILY 08/05/21 08/05/21 History atorvastatin 20 mg PO HS 08/05/21 08/05/21 History hydrochlorothiazide 25 mg PO DAILY 08/05/21 08/05/21 History insulin glargine [Basaglar KwikPen 40 unit SUBCUT HS 08/05/21 08/05/21 History U-100 Insulin] metformin 2,000 mg PO DIRECTED 08/05/21 08/05/21 History pioglitazone 30 mg PO DIRECTED 08/05/21 08/05/21 History Allergies Allergy/AdvReac Type Severity Reaction Status Date / Time No Known Allergies Allergy Verified 04/01/21 08:43 Vital Signs Vital Signs - 24 hr 08/05/21 12:31 08/05/21 12:45 08/05/21 13:00 Temperature Pulse Rate 92 100 87 Respiratory Rate 18 24 H 19 Blood Pressure Pulse Oximetry 97 97 97 08/05/21 13:01 08/05/21 13:19 08/05/21 13:37 Temperature
[2021-08-06 16:35] LABS: Glucose Point of Care 189 mg/dl (65-105)
[2021-08-06] MEDS: RIVAROXABAN 20 MG TABLET PO (18:17)
[2021-08-06] MEDS: PIOGLITAZONE HCL 30 MG TABLET PO (18:18)
[2021-08-06] MEDS: METOPROLOL TARTRATE 25 MG TABLET PO (18:18)
--- NOTE | 2021-08-06 18:41 | PM.DS ---
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: Code(s): I65.21 - Occlusion and stenosis of right carotid artery Status: Acute (3) Atrial fibrillation, new onset: Code(s): I48.91 - Unspecified atrial fibrillation Status: Acute (4) Insulin dependent type 2 diabetes mellitus: Code(s): E11.9 - Type 2 diabetes mellitus without complications; Z79.4 - keno terminal operator (current) use of insulin Status: Acute (5) Suspected sleep apnea: Code(s): R29.818 - Other symptoms and signs involving the nervous system Status: Acute (6) Essential (primary) hypertension: Code(s): I10 - Essential (primary) hypertension Status: Acute DS: Discharge Diagnosis Discharge Diagnosis (1) Mixed diabetic hyperlipidemia associated with type 2 diabetes mellitus: Code(s): E11.69 - Type 2 diabetes mellitus with other specified complication; E78.2 - Mixed hyperlipidemia Status: Acute (2) Suspected sleep apnea: Code(s): R29.818 - Other symptoms and signs involving the nervous system Status: Acute (3) 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: Code(s): I65.21 - Occlusion and stenosis of right carotid artery Status: Acute (4) Transient ischemic attack: Code(s): G45.9 - Transient cerebral ischemic attack, unspecified Status: Acute (5) Insulin dependent type 2 diabetes mellitus: Code(s): E11.9 - Type 2 diabetes mellitus without complications; Z79.4 - penitentiary (current) use of insulin Status: Acute (6) Atrial fibrillation, new onset: Code(s): I48.91 - Unspecified atrial fibrillation Status: Acute (7) Brain TIA: Code(s): G45.9 - Transient cerebral ischemic attack, unspecified Status: Acute (8) Obesity: Code(s): E66.9 - Obesity, unspecified Status: Acute (9) Left knee pain: Code(s): M25.562 - Pain in left knee Status: Acute (10) Diabetes mellitus: Qualifiers: Diabetes mellitus complication status: without complication Diabetes mellitus long term care phlebotomist insulin use: with longterm use Diabetes mellitus type: type 2 Qualified Code(s): E11.9 - Type 2 diabetes mellitus without complications; Z79.4 - keno terminal operator (current) use of insulin Code(s): E11.9 - Type 2 diabetes mellitus without complications Status: Acute (11) Long-term insulin use: Code(s): Z79.4 - penitentiary (current) use of insulin Status: Acute (12) Essential (primary) hypertension: Code(s): I10 - Essential (primary) hypertension Status: Acute (13) H/O: CVA (cerebrovascular accident): Code(s): Z86.73 - Personal history of transient ischemic attack (TIA), and cerebral infarction without residual deficits Status: Acute DS: Summary Hospital Course Reason for hospitalization: Right arm numbness and vision loss. Hospital Course: 71-year-old male presents to the emergency room with right sided vision loss and numbness of right upper extremity right-sided face with associated weakness of the right side. Symptoms resolved after approximately 1 hour and MRI confirmed no CVA present. He was seen by both Cardiology and Neurology for treatment of his TIA with aspirin 81 mg daily and full anticoagulation Xarelto 20 mg at bedtime and metoprolol tartrate 25 mg twice daily for atrial fibrillation. Patient was discharged home in stable condition with indications to follow-up with cardiology ,his primary care physician as well as, Neurology in the outpatient setting. Time spent discussing smoking cessation with patient: 3 to 10 minutes Status at Discharge Functional status at discharge: independent ambulation Overall status at discharge: patient is back to [facility]
--- NOTE | 2021-08-06 21:06 | ECHO_ITS ---
Patient Info Name: Kevin Ly Age: 71 years : 1950 Gender: Male Ht: 68 in Wt: 264 lbs BSA: 2.45 m2 HR: 78 bpm BP: 126 / 63 mmHg Heart Rhythm: Atrial Fibrillation Technical Quality: Fair Exam Date: 08/06/2021 11:08 AM Exam Location: [facility] Pulmonary Exam Room: 203 Patient Status: Inpatient Admit Date: 08/05/2021 Staff Ordering Physician: Janet Cervantes PA-C Cq Developer: Meenakshi Valdes RDCS Attending Provider: Javad Dumont MD Referring Physician: Billy HANSEN; Exam Type: CA echo dop bubble study w con Study Info Indications - STROKE SYMPTOMS NEW ONSET AFIB HTN Complete two-dimentional, color flow and Doppler transthoracic echocardiogram is performed with agitated saline and with contrast to opacify the left ventricle and to improve the delineation of the left ventricle endocardial borders. Contrast/Agitated Saline Contrast/Ag. Saline: Definity Amount: 2.00 ml Administered By: Meenakshi Valdes [facility] Existing IV Access: Yes IV Access Condition: patent with no signs of infiltration Summary 1. Technically difficult study with limited views. Definity contrast administered. Regional wall motion assessment limited due to poor endomyocardial border definition but no clear abnormalities identified. 2. Left ventricular chamber dimension is normal. 3. Left ventricular systolic function is normal, estimated at 65-70%. 4. There is mildly increased left ventricular wall thickness. 5. Left atrial chamber dimension is moderately enlarged. 6. There is trace tricuspid valve regurgitation. 7. No pulmonary hypertension, estimated pulmonary arterial systolic pressure is 31 mmHg. 8. There is trace mitral valve regurgitation. 9. There is no aortic valve stenosis. 10. Technically difficult shunt study. While injection of agitated saline did not reveal clear evidence of byyem-ps-cnyg shunt with or without Valsalva, suboptimal study reduces diagnostic sensitivity and specificity. Recommendations * Consider transesophageal echocardiogram if clinically indicated. Left Ventricle Left ventricular chamber dimension is normal. Left ventricular systolic function is normal, estimated at 65-70%. There is mildly increased left ventricular wall thickness. The left ventricular diastolic function is indeterminate. Technically difficult study with limited views. Definity contrast administered. Regional wall motion assessment limited due to poor endomyocardial border definition but no clear abnormalities identified. Right Ventricle Right ventricular chamber dimension is normal. Right ventricular systolic function is normal. Left Atria Left atrial chamber dimension is moderately enlarged. Right Atria Right atrial chamber dimension is mildly enlarged. Atrial Septum Technically difficult shunt study. While injection of agitated saline did not reveal clear evidence of nbozc-kw-gwzf shunt with or without Valsalva, suboptimal study reduces diagnostic sensitivity and specificity. Aortic Valve The aortic valve is probable trileaflet. There is mild aortic valve sclerosis. There is no aortic valve stenosis. There is trace aortic valve regurgitation. Pulmonic Valve The pulmonic valve is not well visualized. Mitral Valve The mitral valve has thickened leaflets. There is trace mitral valve regurgitation. The mitral valve annulus is moderately calcified. Tricuspid Valve The tricuspid valve leaflets are normal. Ther
== END 2021-08-06 19:40 | disposition home or self-care (01) ==
LOC: ANHED 13:01 → ANHIMU 08-06 12:55
PROVIDERS: Physician Assistant; Admitting Provider Internal Medicine; Emergency Provider Emergency Medicine; PCP Family Medicine; Visit Provider Hospitalist
DX: G45.9 Transient cerebral ischemic attack, unspecified (principal); I48.91 Unspecified atrial fibrillation; R29.818 Other symptoms and signs involving the nervous system; I10 Essential (primary) hypertension; E11.9 Type 2 diabetes mellitus without complications; E78.2 Mixed hyperlipidemia; M25.562 Pain in left knee; E66.01 Morbid (severe) obesity due to excess calories; Z68.41 Body mass index [BMI] 40.0-44.9, adult; Z79.4 Long term (current) use of insulin; Z79.82 Long term (current) use of aspirin; Z79.84 Long term (current) use of oral hypoglycemic drugs; R29.700 NIHSS score 0; Z72.0 Tobacco use
CPT/HCPCS: 36415; 70496; 70498; 70551; 71045; 80048; 80053; 80061; 82948; 83036; 83735; 84443; 84484; 85025; 85610; 85730; 93005; 94762; 96374; 96375; 99285; A9270; C8929; G0378; J1815; Q9957; Q9967

== ENCOUNTER 2021-10-14 14:12 | Outpatient (CLI) | payer MEDICARE, BC, SELFPAY ==
--- NOTE | ~2021-10-14 | US_ITS ---
US arterial ankle brachial ind INDICATION: Diabetes. Previous stroke. Elevated cholesterol levels. Smoking history. Claudication. TECHNIQUE: Segmental pressures and plethysmographic and Doppler waveforms of the brachial and lower e xtremity arteries were obtained. COMPARISON: None. FINDINGS: Right and left brachial artery pressures of 151 mm Hg and 135 mm Hg, respectively, are concordant (no rmal difference <= 30 mmHg). The right ankle-brachial index (ROSA M) is 1.13 (normal >= 0.9-1.0). The right great toe-brachial index (TBI) is 0.27 (normal >= 0.60). The left ROSA M is 1.09. The left TBI is 0.43. IMPRESSION: 1. Diminished bilateral toe brachial indices, consistent with mild-moderate peripheral arterial disea se. Reviewed, dictated and finalized at location A. IMPRESSION: 1. Diminished bilateral toe brachial indices, consistent with mild-moderate per ipheral arterial disease.
== END 2021-10-14 14:13 | disposition home or self-care (01) ==
PROVIDERS: PCP Family Medicine; Visit Provider Family Medicine
DX: I73.9 Peripheral vascular disease, unspecified (principal)
CPT/HCPCS: 93922

== ENCOUNTER 2021-11-14 08:23 | Outpatient (CLI) | payer MEDICARE, BC, SELFPAY ==
[2021-11-14 09:09] LABS: Alanine Aminotransferase 15 U/L (6-50); Albumin Level 4.3 g/dL (3.5-5.1); Alkaline Phosphatase 62 U/L (38-126); Anion Gap 9 mmol/L (8-16); Aspartate Amino Transferase 17 U/L (17-59); Bilirubin,Total 0.6 mg/dL (0.2-1.3); Blood Urea Nitrogen 24 mg/dL (9-20); Calcium 9.4 mg/dL (8.4-10.2); Carbon Dioxide 27 mmol/L (22-30); Chloride 105 mmol/L (98-107); Estimated Glomerular Filt Rate > 60; Glucose 89 mg/dL (65-110); Potassium 3.2 mmol/L (3.4-5.0); Sodium 141 mmol/L (137-145)
[2021-11-14 09:43] LABS: Hemoglobin A1C 7.6 % (<5.7)
== END 2021-11-14 08:24 | disposition home or self-care (01) ==
LOC: ANHLAB 08:26
PROVIDERS: PCP Family Medicine; Visit Provider Family Medicine
DX: E11.9 Type 2 diabetes mellitus without complications (principal); Z79.4 Long term (current) use of insulin
CPT/HCPCS: 36415; 80053; 83036

== ENCOUNTER 2022-02-04 16:18 | Emergency (ER) | payer MEDICARE, BC, SELFPAY ==
--- NOTE | ~2022-02-04 | XR_ITS ---
XR finger 2nd LT min 2V DATE: 02/04/2022 16:53 INDICATION: Drilled through the distal finger with nail TECHNIQUE: 3 views COMPARISON: None FINDINGS: Approximately 4 mm long very thin linear opacity is noted in the soft tissues of the mid se cond digit medially, possibly metallic foreign body, possibly small shaving from the reported nail in jean carlos. Small degenerative ossicle at the medial aspect of the distal interphalangeal joint and mild osteophy tic spurring at the DIP joint. No fracture or dislocation is detected. Prominent osteoarthritic change at the first carpometacarpal joint. 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
[2022-02-04 16:27] VITALS: BP 146/100; PULSE 79; RESP 16; TEMP 37.4; O2SAT 97
--- NOTE | 2022-02-04 16:47 | ED.GENADULT ---
HPI - General Adult General Chief complaint: Extremity Injury, Upper Stated complaint: Left finger injury History of Present Illness HPI narrative: Mr Ly is a pleasant 71 y/o male. PMHx HTN, Dyslipidemia, DM II. Presents to [facility] today with acute complaints of LT pointer finger injury 48 hours ago. Client tells me that he had been working with a power drill, RT Hand Dominant, and had accidentally drilling into left pointer finger soft tissue. His dominant hand had slipped. He notes initial bleeding at site, and had been cleansing area at home. Now with increased soft tissue swelling, wound, and redness. No bony pain. No active bleeding. Unknown last Tetanus. Drill bit remained fully intact, no concern for equipment FB. However does note drill bit to have been dirty with debris. No loss of upper extremity sensation or control. He has not yet sought out medical evaluation until now, today. Related Data Home Medications Medication Instructions Recorded Confirmed aspirin 81 mg tablet 81 mg PO BID 03/08/20 02/04/22 hydrochlorothiazide 25 mg tablet 25 mg PO DAILY 08/05/21 02/04/22 insulin glargine 100 unit/mL (3 40 unit subcut HS 08/05/21 02/04/22 mL) subcutaneous pen (Basaglar KwikPen U-100 Insulin) rosuvastatin 20 mg tablet 20 mg PO DAILY 09/24/21 02/04/22 Allergies Allergy/AdvReac Type Severity Reaction Status Date / Time No Known Allergies Allergy Verified 02/04/22 16:26 Review of Systems Review of Systems: CONSTITUTIONAL: Denies fever, chills, sweats. EYES: Denies visual changes, redness, discharge. ENT: Denies rhinorrhea, congestion, sore throat, otalgia. CARDIOVASCULAR: Denies chest pain, palpitations, edema. RESPIRATORY: Denies dyspnea, wheezing, cough GASTROINTESTINAL: Denies abdominal pain, nausea, vomiting, diarrhea. GENITOURINARY: Denies dysuria, hematuria, abnormal discharge SKIN: LT pointer finger puncture wound. MUSCULOSKELETAL: LT pointer finger injury. Denies additional joint pain, or myalgia. NEUROLOGIC: Denies numbness, or focal weakness. PSYCHIATRIC: Denies anxiety or depression. [facility] Past Medical History Medical History Afib Essential (primary) hypertension H/O: CVA (cerebrovascular accident) History of colon polyps Insulin dependent type 2 diabetes mellitus Pure hypercholesterolemia Surgical History Surgical History History of right inguinal hernia repair Family History Family History Sibling Family history of type 1 diabetes mellitus Social History Social History Social History: Surrogate decision maker: Denise Ly, spouse. Code status: Full code. Years smoked: 10 Smoking status: Current some day smoker Tobacco type: cigars Second hand tobacco smoke exposure: No Additional smoking assessment comments: Pt smokes occasional cigar while on the golf [place]. Alcohol intake: current Drinks per week: 3 Substance use: never Substance use type: does not use Additional living arrangements comments: The patient lives with his in [place]. Additional occupation/education comments: Retired from working in a [employer]. Exam Narrative: GENERAL: This is a well-nourished, well-developed adult, in no apparent distress. HEAD: normocephalic. EYES: Sclera clear/white. EARS: External ears normal. NOSE: External nose normal. THROAT: Mucous membranes moist NECK: Neck supple, non-tender. CARDIOVASCULAR: Regular rate and rhythm. Good pulses and cap refill LUE, all sites. RESPIRATORY: Clear to auscultation. GASTROINTESTINAL: Abdomen soft, non-tender. SKIN: With 1 cm soft tissue puncture wound overlying palmar aspect of LT index finger, just above palm at level of lower proximal phalanx/MCP. There
[2022-02-04] MEDS: TETANUS,DIPHTHERIA,AC PERTUSSIS ADULT (0.5 ML) BOOSTRIX IM (17:02)
== END 2022-02-04 18:25 | disposition home or self-care (01) ==
PROVIDERS: Emergency Provider Nurse Practitioner Adult Health; PCP Family Medicine
DX: S61.231A Puncture wound without foreign body of left index finger without damage to nail, initial encounter (principal); W29.8XXA Contact with other powered hand tools and household machinery, initial encounter; S61.241A Puncture wound with foreign body of left index finger without damage to nail, initial encounter; X58.XXXA Exposure to other specified factors, initial encounter; Z23 Encounter for immunization; F17.290 Nicotine dependence, other tobacco product, uncomplicated; I48.91 Unspecified atrial fibrillation; I10 Essential (primary) hypertension; Z86.73 Personal history of transient ischemic attack (TIA), and cerebral infarction without residual deficits; E11.9 Type 2 diabetes mellitus without complications; E78.00 Pure hypercholesterolemia, unspecified; Z79.4 Long term (current) use of insulin; Z79.82 Long term (current) use of aspirin
CPT/HCPCS: 73140; 90471; 90715; 99213; G0463

== ENCOUNTER 2022-03-20 08:11 | Outpatient (CLI) | payer MEDICARE, BC, SELFPAY ==
[2022-03-20 08:36] LABS: Hematocrit 42.4 % (42.0-52.0); Hemoglobin 13.8 g/dL (14.0-18.0); Mean Corpuscular HGB Conc 32.5 g/dl (32-36); Mean Corpuscular Hemoglobin 30.6 pg (26-34); Mean Platelet Volume 10.9 fl (7.4-10.4); Platelet Count Result 169 k/mm3 (150-375); Red Blood Count 4.51 M/mm3 (4.6-6.20); White Blood Count 5.3 K/mm3 (4.5-10.0)
[2022-03-20 08:51] LABS: Hemoglobin A1C 8.8 % (<5.7)
[2022-03-20 09:18] LABS: Add Urine Microscopic? YES; Appearance Urine Clear (Clear); Bilirubin Urine Negative (Negative); Blood Urine 1+ (Negative); Color Urine Yellow (Yellow); Glucose Urine UA 1+ mg/dL (Negative); Ketones Urine Negative (Negative); Leukocyte Esterase Ur Negative LEU/UL (NEGATIVE); Nitrate Urine Negative (Negative); Protein Urine Negative (Negative); Specific Grav Ur 1.019 (1.001-1.035); Urobilinogen Urine Negative mg/dL (<2.0); WBC Urine 0-3 /hpf (0-3)
[2022-03-20 09:20] LABS: Creatinine Urine 88.1 mg/dL
[2022-03-20 09:25] LABS: MALB Creatinine Ratio 52.2 mg/g (0-30)
[2022-03-20 09:41] LABS: Alanine Aminotransferase 26 U/L (6-50); Albumin Level 4.2 g/dL (3.5-5.1); Alkaline Phosphatase 71 U/L (38-126); Anion Gap 11 mmol/L (8-16); Aspartate Amino Transferase 23 U/L (17-59); Bilirubin,Total 0.7 mg/dL (0.2-1.3); Blood Urea Nitrogen 22 mg/dL (9-20); Calcium 9.7 mg/dL (8.4-10.2); Carbon Dioxide 29 mmol/L (22-30); Chloride 102 mmol/L (98-107); Cholesterol 124 mg/dL (0-200); Estimated Glomerular Filt Rate > 60; Glucose 138 mg/dL (65-110); HDL Direct 45 mg/dL; Potassium 3.7 mmol/L (3.4-5.0); Sodium 142 mmol/L (137-145); Triglycerides 74 mg/dL (<150)
[2022-03-20 09:52] LABS: LDL Cholesterol Direct 61 mg/dL
[2022-03-20 10:09] LABS: Prostate Specific Antigen 0.8 ng/mL (< OR = 4.0)
== END 2022-03-20 08:12 | disposition home or self-care (01) ==
LOC: ANHLAB 08:15
PROVIDERS: PCP Family Medicine; Visit Provider Family Medicine
DX: E78.2 Mixed hyperlipidemia (principal); E11.69 Type 2 diabetes mellitus with other specified complication; Z79.4 Long term (current) use of insulin; I10 Essential (primary) hypertension; E78.00 Pure hypercholesterolemia, unspecified; R35.1 Nocturia; R53.83 Other fatigue; Z00.00 Encounter for general adult medical examination without abnormal findings
CPT/HCPCS: 36415; 80053; 80061; 81001; 82043; 83036; 84153; 84443; 85027

== ENCOUNTER 2022-04-28 01:13 | Day surgery (SDC) | payer MEDICARE, BC, SELFPAY ==
[2022-04-14 13:08] VITALS: BMI 43.9
--- NOTE | 2022-04-27 13:56 | PM.HPGS ---
History of Present Illness History of Present Illness Consent: Risks, benefits, and alternatives have been discussed and questions answered. Patient agrees to proceed with procedure. Chief complaint: Hx of colon polyps Narrative: Kevin Ly is a 71 year old male who is here for colon cancer screening. His last colonoscopy was 5 years ago. He has a history of having had a polyp removed in the past. Review of Systems Review of Systems: All systems reviewed & are unremarkable except as noted in HPI and below PMFSH Past Medical History Medical History Afib Claudication Diabetes mellitus Diabetes mellitus with hyperglycemia Essential (primary) hypertension H/O: CVA (cerebrovascular accident) History of colon polyps Insulin dependent type 2 diabetes mellitus Morbid obesity with BMI of 40.0-44.9, adult Pure hypercholesterolemia Suspected sleep apnea Transient ischemic attack Surgical History Surgical History History of right inguinal hernia repair Family History Family History Sibling Family history of type 1 diabetes mellitus Social History Social History Social History: Surrogate decision maker: Denise Ly, spouse. Code status: Full code. Years smoked: 10 Smoking status: Former smoker Tobacco type: cigarettes Second hand tobacco smoke exposure: No Additional smoking assessment comments: Pt smokes [place] cigar [place]. Alcohol intake: former Drinks per week: 3 Substance use: never Substance use type: does not use Lack of Transportation: No Lack of Food: Never True Current Housing: I Have Housing Concerned About Future Housing: No Difficulty Paying Gas/Electric Bills: No Difficulty Paying for Meds: No Education: High School Diploma/GED Difficulty w/ Childcare or Family Care: No Living arrangements: with family Additional living arrangements comments: The patient lives with his in [place]. Additional occupation/education comments: Retired from working in a [employer]. Spiritual care concerns: No Meds Home Medications and Allergies Home Medications Medication Instructions Recorded Confirmed Type lancets 28 gauge (FreeStyle #200 ea 01/07/20 03/24/22 Rx Lancets) aspirin 81 mg tablet 81 mg PO BID 03/08/20 04/14/22 History blood sugar diagnostic (FreeStyle See Rx Instructions .Route 01/05/21 04/28/22 Rx Lite Strips) .COMPLEX #200 strips rosuvastatin 20 mg tablet 20 mg PO DAILY 09/24/21 04/14/22 History metoprolol tartrate 50 mg tablet 50 mg PO Q12HR 180 days #180 tabs 10/06/21 04/14/22 Rx pioglitazone 30 mg tablet 30 mg PO DIRECTED #90 tabs 10/28/21 04/14/22 Rx pen needle, diabetic 29 gauge x See Rx Instructions .Route 12/10/21 04/28/22 Rx 1/2 (BD Ultra-Fine Original Pen .COMPLEX #100 syringes Needle) mupirocin 2 % topical ointment 1 applic topical DAILY #15 grams 02/04/22 04/14/22 Rx metformin 500 mg tablet,extended 2,000 mg PO DIRECTED #360 tabs 02/09/22 04/14/22 Rx release 24 hr hydrochlorothiazide 25 mg tablet 25 mg PO DAILY #90 tabs 02/22/22 04/14/22 Rx losartan 50 mg tablet 50 mg PO DAILY #90 tabs 02/22/22 04/14/22 Rx rivaroxaban 20 mg tablet (Xarelto) See Rx Instructions .Route 02/22/22 04/14/22 Rx .COMPLEX #90 tabs insulin glargine 100 unit/mL (3 55 unit (0.55 mL) subcut HS #15 mL 03/24/22 04/14/22 Rx mL) subcutaneous pen (Basaglar KwikPen U-100 Insulin) amlodipine 10 mg tablet 10 mg PO DAILY 04/14/22 04/14/22 History gabapentin 300 mg capsule See Rx Instructions .Route 04/27/22 04/28/22 Rx .COMPLEX #60 caps Allergies Allergy/AdvReac Type Severity Reaction Status Date / Time No Known Allergies Allergy Verified 04/14/22 13:08 Exam Resp: Auscultation: clear to ausc
[2022-04-28 11:36] VITALS: BP 162/79; PULSE 108; RESP 24; TEMP 36.3; O2SAT 100
[2022-04-28] MEDS: LACTATED RINGERS 1,000 ML 150 ML IV CONT (11:40)
[2022-04-28 11:47] LABS: Glucose Point of Care 193 mg/dl (65-105)
--- NOTE | 2022-04-28 12:04 | WPDANESEPPF ---
Anes - Initial Pre Proc Eval Procedure: Operation Date: 04/28/22 13:00 Proposed Procedures p Screening Colonoscopy - Charli Haddad MD Date/Time: 04/28/22 12:04 Surgeon: Charli Haddad MD Pre Op Diagnosis: Hx of colon polyps Patient Data Age: 71 Gender: M Height: 1.7 m Weight: 129.3 kg Last Vital Signs Temp 36.3 C L 04/28/22 11:36 Pulse 108 H 04/28/22 11:36 Resp 24 H 04/28/22 11:36 BP 162/79 H 04/28/22 11:36 Pulse Ox 100 04/28/22 11:36 O2 Del Method Room Air 04/28/22 11:36 Allergies Allergy/AdvReac Type Severity Reaction Status Date / Time No Known Allergies Allergy Verified 04/14/22 13:08 Home Medications Medication Instructions Recorded Confirmed Type lancets 28 gauge (FreeStyle #200 ea 01/07/20 03/24/22 Rx Lancets) aspirin 81 mg tablet 81 mg PO BID 03/08/20 04/14/22 History blood sugar diagnostic (FreeStyle See Rx Instructions .Route 01/05/21 04/28/22 Rx Lite Strips) .COMPLEX #200 strips rosuvastatin 20 mg tablet 20 mg PO DAILY 09/24/21 04/14/22 History metoprolol tartrate 50 mg tablet 50 mg PO Q12HR 180 days #180 tabs 10/06/21 04/14/22 Rx pioglitazone 30 mg tablet 30 mg PO DIRECTED #90 tabs 10/28/21 04/14/22 Rx pen needle, diabetic 29 gauge x See Rx Instructions .Route 12/10/21 04/28/22 Rx 1/2 (BD Ultra-Fine Original Pen .COMPLEX #100 syringes Needle) mupirocin 2 % topical ointment 1 applic topical DAILY #15 grams 02/04/22 04/14/22 Rx metformin 500 mg tablet,extended 2,000 mg PO DIRECTED #360 tabs 02/09/22 04/14/22 Rx release 24 hr hydrochlorothiazide 25 mg tablet 25 mg PO DAILY #90 tabs 02/22/22 04/14/22 Rx losartan 50 mg tablet 50 mg PO DAILY #90 tabs 02/22/22 04/14/22 Rx rivaroxaban 20 mg tablet (Xarelto) See Rx Instructions .Route 02/22/22 04/14/22 Rx .COMPLEX #90 tabs insulin glargine 100 unit/mL (3 55 unit (0.55 mL) subcut HS #15 mL 03/24/22 04/14/22 Rx mL) subcutaneous pen (Basaglar KwikPen U-100 Insulin) amlodipine 10 mg tablet 10 mg PO DAILY 04/14/22 04/14/22 History gabapentin 300 mg capsule See Rx Instructions .Route 04/27/22 04/28/22 Rx .COMPLEX #60 caps Laboratory Tests 04/28/22 11:44 POC Capillary Glucose 193 mg/dl H mg/dl (65-105) Patient hx anesthesia problems: none Family hx anesthesia problems: none Results Review: All pre-operative results and documents have been reviewed as part of the pre-operative evaluation. [facility] Past Medical History Medical History (Updated 04/28/22 @ 12:05 by Jose Chavarria MD) Afib Claudication Diabetes mellitus Diabetes mellitus with hyperglycemia Essential (primary) hypertension H/O: CVA (cerebrovascular accident) History of colon polyps Insulin dependent type 2 diabetes mellitus Morbid obesity with BMI of 40.0-44.9, adult Pure hypercholesterolemia Suspected sleep apnea Transient ischemic attack Surgical History Surgical History History of right inguinal hernia repair Family History Family History Sibling Family history of type 1 diabetes mellitus Social History Social History Social History: Surrogate decision maker: Denise Ly, spouse. Code status: Full code. Years smoked: 10 Smoking status: Former smoker Tobacco type: cigarettes Second hand tobacco smoke exposure: No Additional smoking assessment comments: Pt smokes occasional cigar [place] the [place]. Alcohol intake: former Drinks per week: 3 Substance use: never Substance use type: does not use Lack of Transportation: No Lack of Food: Never True Current Housing: I Have Housing Concerned About Future Housing: No Difficulty Paying Gas/Electric Bills: No Difficulty Paying for Meds: No Education: High School Diploma/GED Difficulty w/ Childcare or Family Care: No Living arrangements: with family [place]
[2022-04-28 13:24] VITALS: BP 131/84; PULSE 90; RESP 23; O2SAT 94
[2022-04-28 13:34] VITALS: BP 123/78; PULSE 85; RESP 24; O2SAT 95
[2022-04-28 13:44] VITALS: BP 149/84; PULSE 94; RESP 26; O2SAT 97
== END 2022-04-28 13:54 | disposition home or self-care (01) ==
PROVIDERS: PCP Family Medicine; Visit Provider Internal Medicine Gastroenterology
PROC: 0DJD8ZZ Inspection of Lower Intestinal Tract, Via Natural or Artificial Opening Endoscopic (ICD-10-PCS; CPT 45378; principal; 2022-04-28 13:00)
DX: Z12.11 Encounter for screening for malignant neoplasm of colon (principal); Z86.010 Personal history of colon polyps; I48.91 Unspecified atrial fibrillation; E11.9 Type 2 diabetes mellitus without complications; I10 Essential (primary) hypertension; E78.00 Pure hypercholesterolemia, unspecified; Z86.73 Personal history of transient ischemic attack (TIA), and cerebral infarction without residual deficits; E66.01 Morbid (severe) obesity due to excess calories; Z68.41 Body mass index [BMI] 40.0-44.9, adult; Z72.0 Tobacco use; Z79.82 Long term (current) use of aspirin; Z79.84 Long term (current) use of oral hypoglycemic drugs; Z79.01 Long term (current) use of anticoagulants; Z79.4 Long term (current) use of insulin
CPT/HCPCS: G0105; 82948; J7120

== ENCOUNTER 2022-07-10 09:47 | Outpatient (CLI) | payer MEDICARE, BC, SELFPAY ==
[2022-07-10 10:27] LABS: Alanine Aminotransferase 21 U/L (6-50); Albumin Level 4.3 g/dL (3.5-5.1); Alkaline Phosphatase 74 U/L (38-126); Anion Gap 3 mmol/L (8-16); Aspartate Amino Transferase 19 U/L (17-59); Bilirubin,Total 0.7 mg/dL (0.2-1.3); Blood Urea Nitrogen 21 mg/dL (9-20); Calcium 9.3 mg/dL (8.4-10.2); Carbon Dioxide 32 mmol/L (22-30); Chloride 102 mmol/L (98-107); Estimated Glomerular Filt Rate 59; Glucose 92 mg/dL (65-110); Potassium 3.2 mmol/L (3.4-5.0); Sodium 137 mmol/L (137-145)
[2022-07-10 11:37] LABS: Hemoglobin A1C 8.2 % (<5.7)
== END 2022-07-10 09:48 | disposition home or self-care (01) ==
PROVIDERS: PCP Family Medicine; Visit Provider Family Medicine
DX: E11.9 Type 2 diabetes mellitus without complications (principal); Z79.4 Long term (current) use of insulin
CPT/HCPCS: 36415; 80053; 83036

== ENCOUNTER → 2022-07-14 10:51 | Outpatient (CLI) | payer MEDICARE, BC, SELFPAY ==
--- NOTE | ~2022-07-14 | XR_ITS ---
EXAMINATION: XR hip LT 2V w AP pelvis INDICATION: Left hip pain TECHNIQUE: AP view the pelvis and two views of the left hip are obtained. COMPARISON: None available FINDINGS: Bone alignment is normal. There is no fracture. There is mild osteoarthritis of the hips. C alcified atherosclerosis is noted. IMPRESSION: 1. Mild osteoarthritis of the hips. Reviewed, dictated and finalized at location B. [place] [facility]
== END ==
PROVIDERS: PCP Family Medicine; Visit Provider Family Medicine
DX: M16.12 Unilateral primary osteoarthritis, left hip (principal)
CPT/HCPCS: 73502

== ENCOUNTER 2022-10-15 10:24 | Outpatient (CLI) | payer MEDICARE, BC, SELFPAY ==
--- NOTE | ~2022-10-15 | XR_ITS ---
XR lumbar spine 2-3V 10/15/2022 10:40 Indication: Chronic low back pain Procedure: 3 views lumbar spine Comparison: 02/27/2017 Findings: Vertebral body heights are maintained. No significant disc narrowing. Moderate multilevel f acet hypertrophy. There is grade 1 degenerative spondylolisthesis at L4-5. There is atherosclerosis o f the aorta. There is mild levocurvature of the lumbar spine. Impression: 1: Moderate lumbar spondylosis primarily involving the facet joints appear Reviewed, dictated and finalized at location B. Impression: 1: Moderate lumbar spondylosis primarily involving the facet joints appear
== END 2022-10-15 10:25 | disposition home or self-care (01) ==
LOC: ANHIMG 10:27
PROVIDERS: PCP Family Medicine; Visit Provider Family Medicine
DX: M47.896 Other spondylosis, lumbar region (principal)
CPT/HCPCS: 72100

== ENCOUNTER 2022-11-08 12:26 | Outpatient (CLI) | payer MEDICARE, BC, SELFPAY ==
--- NOTE | ~2022-11-08 | MR_ITS ---
EXAMINATION: MR lumbar spine wo con DATE: 11/08/2022 13:50 INDICATION: Low back pain. TECHNIQUE: Magnetic resonance imaging (MRI) of the lumbar spine was performed without intravenous con trast. Sequences included sagittal T2-weighted FSE, sagittal T2-weighted FS FSE, sagittal T1-weighted FSE, and axial T2-weighted FSE. COMPARISON: Lumbar spine radiographs 10/15/2022 FINDINGS: There is 6 degrees levocurvature of lumbar spine. There is 3 mm anterolisthesis of L4 on L5 . Vertebral body heights are normal. There is mildly decreased disc height at L3-L4 and L4-L5. Epidur al lipomatosis is noted. The distal spinal cord signal intensity is normal. The conus medullaris is a t T12-L1. The following disc levels are specifically discussed: L1-L2: The disc is bulging. There is moderate bilateral facet joint osteoarthritis. There is mild orion ateral neural foraminal stenosis. There is no central canal stenosis. L2-L3: The disc is bulging. There is severe right and moderate left facet joint osteoarthritis. There is mild bilateral neural foraminal stenosis. There is no central canal stenosis. L3-L4: The disc is bulging. There is severe bilateral facet joint osteoarthritis. There is mild bilat eral neural foraminal stenosis. There is no central canal stenosis. L4-L5: The disc is bulging and has an annular fissure. There is severe bilateral facet joint osteoart hritis. There is mild right and moderate left neural foraminal stenosis. There is mild central canal stenosis. L5-S1: The disc is bulging. There is severe bilateral facet joint osteoarthritis. There is mild right and moderate left neural foraminal stenosis. There is mild central canal stenosis. IMPRESSION: 1. Moderate lumbar spondylosis. Reviewed, dictated and finalized at location A.
== END 2022-11-08 12:27 | disposition home or self-care (01) ==
LOC: ANHIMG 12:29
PROVIDERS: PCP Family Medicine; Visit Provider Family Medicine
DX: M47.896 Other spondylosis, lumbar region (principal)
CPT/HCPCS: 72148

== ENCOUNTER 2022-11-11 12:20 | Outpatient (CLI) | payer MEDICARE, BC, SELFPAY ==
[2022-11-11 13:46] LABS: Alanine Aminotransferase 22 U/L (6-50); Albumin Level 4.4 g/dL (3.5-5.1); Alkaline Phosphatase 70 U/L (38-126); Anion Gap 6 mmol/L (8-16); Aspartate Amino Transferase 23 U/L (17-59); Bilirubin,Total 0.8 mg/dL (0.2-1.3); Blood Urea Nitrogen 24 mg/dL (9-20); Calcium 9.5 mg/dL (8.4-10.2); Carbon Dioxide 29 mmol/L (22-30); Chloride 105 mmol/L (98-107); Estimated Glomerular Filt Rate > 60; Glucose 125 mg/dL (65-110); Potassium 3.8 mmol/L (3.4-5.0); Sodium 140 mmol/L (137-145)
[2022-11-11 14:16] LABS: Hemoglobin A1C 7.2 % (<5.7)
== END 2022-11-11 12:21 | disposition home or self-care (01) ==
LOC: ANHLAB 12:22
PROVIDERS: PCP Family Medicine; Visit Provider Family Medicine
DX: E11.9 Type 2 diabetes mellitus without complications (principal); Z79.4 Long term (current) use of insulin
CPT/HCPCS: 36415; 80053; 83036

== ENCOUNTER 2023-03-23 10:48 | Outpatient (CLI) | payer MEDICARE, BC, SELFPAY ==
[2023-03-23 12:04] LABS: Add Urine Microscopic? NO; Appearance Urine Clear (Clear); Bilirubin Urine Negative (Negative); Blood Urine Negative (Negative); Color Urine Yellow (Yellow); Glucose Urine UA Negative (Negative); Ketones Urine Negative (Negative); Leukocyte Esterase Ur Negative LEU/UL (NEGATIVE); Nitrate Urine Negative (Negative); Protein Urine Negative (Negative); Specific Grav Ur 1.018 (1.001-1.035); pH Urine 5.5 (5.0-9.0)
[2023-03-23 12:07] LABS: Hematocrit 48.4 % (42.0-52.0); Hemoglobin 15.5 g/dL (14.0-18.0); Mean Corpuscular Hemoglobin 30.8 pg (26-34); Platelet Count Result 186 k/mm3 (150-375); Red Blood Count 5.04 M/mm3 (4.6-6.20); Red Cell Distribution Width 14.2 % (11.5-14.5); White Blood Count 6.3 K/mm3 (4.5-10.0)
[2023-03-23 12:25] LABS: Alanine Aminotransferase 19 U/L (6-50); Albumin Level 4.7 g/dL (3.5-5.1); Alkaline Phosphatase 55 U/L (38-126); Anion Gap 12 mmol/L (8-16); Aspartate Amino Transferase 27 U/L (17-59); Bilirubin,Total 1.2 mg/dL (0.2-1.3); Blood Urea Nitrogen 24 mg/dL (9-20); Calcium 9.7 mg/dL (8.4-10.2); Carbon Dioxide 28 mmol/L (22-30); Chloride 99 mmol/L (98-107); Cholesterol 118 mg/dL (0-200); Estimated Glomerular Filt Rate > 60; Glucose 123 mg/dL (65-110); HDL Direct 35 mg/dL; Potassium 3.5 mmol/L (3.4-5.0); Sodium 139 mmol/L (137-145); Triglycerides 110 mg/dL (<150)
[2023-03-23 12:31] LABS: LDL Cholesterol Direct 64 mg/dL
[2023-03-23 12:52] LABS: Prostate Specific Antigen 0.6 ng/mL (< OR = 4.0)
[2023-03-23 12:56] LABS: Microalbumin Urine Random 24.1 mg/L (0-16.7)
[2023-03-23 13:00] LABS: Creatinine Urine 151.2 mg/dL; MALB Creatinine Ratio 15.9 mg/g (0-30)
[2023-03-23 13:35] LABS: Hemoglobin A1C 7.2 % (<5.7)
== END 2023-03-23 10:49 | disposition home or self-care (01) ==
LOC: ANHLAB 10:56
PROVIDERS: PCP Family Medicine; Referring Provider Internal Medicine Cardiovascular Disease; Visit Provider Family Medicine
DX: Z00.00 Encounter for general adult medical examination without abnormal findings (principal); E11.9 Type 2 diabetes mellitus without complications; E78.00 Pure hypercholesterolemia, unspecified; I10 Essential (primary) hypertension; R35.1 Nocturia; Z79.4 Long term (current) use of insulin; E11.59 Type 2 diabetes mellitus with other circulatory complications; I15.2 Hypertension secondary to endocrine disorders
CPT/HCPCS: 36415; 80053; 80061; 81003; 82043; 83036; 84153; 84443; 85027

== ENCOUNTER 2023-04-08 14:18 | Inpatient (IN) | payer MEDICARE, BC, SELFPAY ==
[2023-04-08 14:23] VITALS: BP 140/65; PULSE 102; RESP 18; TEMP 36.6; O2SAT 97
[2023-04-08 14:48] LABS: Basophils Absolute Auto 0.1 K/mm3 (0.0-0.1); Basophils Percent Auto 0.7 % (0.2-1.2); Eosinophils Absolute Auto 0.3 K/mm3 (0-0.3); Eosinophils Percent Auto 3.8 % (0-4.4); Hematocrit 42.4 % (42.0-52.0); Hemoglobin 13.6 g/dL (14.0-18.0); Immature Granulocyte Absolute 0.04 K/mm3 (0.00-0.031); Immature Granulocyte Percent A 0.5 % (0-0.5); Lymphocytes Absolute Auto 2.19 K/mm3 (0.9-3.2); Lymphocytes Percent Auto 29.8 % (18.3-44.2); Mean Corpuscular HGB Conc 32.1 g/dl (32-36); Mean Corpuscular Hemoglobin 30.6 pg (26-34); Mean Corpuscular Volume 95.3 fl (80-100); Mean Platelet Volume 10.9 fl (7.4-10.4); Monocytes Absolute Auto 0.7 K/mm3 (0.1-0.6); Monocytes Percent Auto 9.6 % (2.6-8.5); Neutrophils Absolute Auto 4.1 K/mm3 (1.3-6.7); Neutrophils Percent Auto 55.6 % (45.5-73.1); Platelet Count Result 188 k/mm3 (150-375); Red Blood Count 4.45 M/mm3 (4.6-6.20); White Blood Count 7.4 K/mm3 (4.5-10.0)
[2023-04-08 14:59] LABS: INR 2.3; Partial Thromboplastin Time 37.7 SECONDS (22.3-36.8); Prothrombin Time 26.5 Seconds (11.1-14.7)
[2023-04-08 15:03] LABS: Alanine Aminotransferase 21 U/L (6-50); Albumin Level 4.5 g/dL (3.5-5.1); Alkaline Phosphatase 58 U/L (38-126); Anion Gap 14 mmol/L (8-16); Aspartate Amino Transferase 27 U/L (17-59); Bilirubin,Total 1.2 mg/dL (0.2-1.3); Blood Urea Nitrogen 18 mg/dL (9-20); Calcium 9.7 mg/dL (8.4-10.2); Carbon Dioxide 26 mmol/L (22-30); Chloride 98 mmol/L (98-107); Estimated Glomerular Filt Rate > 60; Glucose 191 mg/dL (65-110); Potassium 3.5 mmol/L (3.4-5.0); Sodium 138 mmol/L (137-145)
--- NOTE | 2023-04-08 15:40 | ED.GIBLEED ---
HPI - GI Bleed General Chief complaint: GI Bleed Stated complaint: rectal bleeding Time Seen by Provider: 04/08/23 14:43 History of Present Illness HPI Narrative: Patient is a 72-year-old male with a history of A-fib on Xarelto presenting with rectal bleeding. Patient states that for the past 5 days he has been bleeding from his rectum. States that he had a hard bowel movement on Tuesday that was painful but the bleeding actually started a day before this. States that he seems to be bleeding all the time. His states that it is like he is having a heavy menstrual cycle. He has been using depends and they state that it is full of blood in the morning. His and PCP finally convinced him to come in for evaluation today. No lightheadedness, chest pain, shortness of breath. Denies any pain whatsoever actually. No further complaints. States that he had a normal colonoscopy a year ago. Related Data Home Medications Medication Instructions Recorded Confirmed aspirin 81 mg tablet 81 mg PO BID 03/08/20 04/08/23 gabapentin 300 mg capsule 300 mg PO BID 04/08/23 04/08/23 rosuvastatin 20 mg tablet 20 mg PO HS 04/08/23 04/08/23 Allergies Allergy/AdvReac Type Severity Reaction Status Date / Time No Known Allergies Allergy Verified 04/08/23 23:12 Review of Systems Review of Systems: All systems reviewed & are unremarkable except as noted in HPI and below PMFSH Past Medical History Medical History Cerebrovascular accident Chronic anticoagulation Claudication Essential (primary) hypertension History of colon polyps Insulin dependent type 2 diabetes mellitus Morbid obesity with BMI of 40.0-44.9, adult Obstructive sleep apnea on CPAP Paroxysmal atrial fibrillation Pure hypercholesterolemia Transient ischemic attack Surgical History Surgical History History of right inguinal hernia repair Family History Family History Sibling Family history of type 1 diabetes mellitus Social History Social History Social History: Surrogate decision maker: Denise Aliyah, spouse. Code status: Full code. Years smoked: 25 Smoking status: Former smoker Tobacco type: cigarettes Second hand tobacco smoke exposure: No Smoking end date: 09/06/84 Additional smoking assessment comments: Pt smokes occasional cigar [place] the [place]. Hasn't smoked in 4yrs Alcohol intake: never Alcohol use details: occasional beer Substance use: never Substance use type: does not use Lack of Transportation: No Lack of Food: Never True Current Housing: I Have Housing Concerned About Future Housing: No Difficulty Paying Gas/Electric Bills: No Difficulty Paying for Meds: No Currently Unemployed: No Education: High School Diploma/GED Difficulty w/ Childcare or Family Care: No Living arrangements: with family Additional living arrangements comments: The patient lives with his in [place]. Occupation/Education: retired Additional occupation/education comments: Retired from working in a [employer]. Spiritual care concerns: No Exam Narrative: GENERAL: Well-appearing, no acute distress, pleasant and cooperative. HEAD: Normocephalic, atraumatic. EYES: PERRLA and EOMI. ENT: Grossly unremarkable NECK: Supple. CHEST: Clear to auscultation. No respiratory distress. HEART: Irregular rhythm, normal rate ABDOMEN: Soft, nontender, nondistended RECTAL: Matthew red blood on rectal exam, no fissures or hemorrhoids; there are several skin tags EXTREMITIES: Normal range of motion. No edema. SKIN: Warm, dry, no rash. NEURO: No focal deficits. Alert and oriented x3. PSYCH: Normal mood and affect. Course Vital Signs Vital signs: Vital Signs Temperature 97.8 F 04/08/23 14:2
[2023-04-08 17:33] VITALS: BP 162/83; PULSE 81; RESP 20; TEMP 36.8; O2SAT 97
--- NOTE | 2023-04-08 18:29 | PM.IMHP ---
H&P: HPI History of Present Illness Date/Time: 04/08/23 18:30 Chief Complaint: Rectal bleeding. Narrative: This is a 72-year-old male with paroxysmal atrial fibrillation on chronic anticoagulation, insulin-dependent diabetes, and TIA who presented to the emergency department via private vehicle from home for evaluation of rectal bleeding. The patient provides the following history. On Tuesday he noticed a small amount of bright red blood oozing out of his rectum. The following day he had a somewhat painful, hard bowel movement and since that time his bleeding has been worse. It seems to be using constantly and he has been wearing depends. He is otherwise feeling okay and has not been having any pain since his BM on Tuesday. This morning the amount of blood was more than what had been and after speaking with his doctor he finally agreed to come in to the ED for evaluation. He denies lightheadedness, dizziness, chest pain, shortness a breath, abdominal pain, nausea, and diarrhea. He has a history of colon polyps however had a normal colonoscopy done [address] Haddad. Vital signs were stable on arrival to the ED. His hemoglobin was 13.6 which is nearly 2 g lower than what it was on labs obtained 03/23/2023. PT, INR, and PTT were 26.5, 2.3, and 37.7 respectively. CMP was essentially unremarkable though random glucose was elevated 191. He is being admitted in this setting for close monitoring and GI consultation Review of Systems Review of Systems: Twelve systems were reviewed and are negative except for as per HPI. [facility] Past Medical History Medical History (Updated 04/08/23 @ 22:47 by Janet Cervantes PA-C) Cerebrovascular accident Chronic anticoagulation Claudication Essential (primary) hypertension History of colon polyps Insulin dependent type 2 diabetes mellitus Morbid obesity with BMI of 40.0-44.9, adult Obstructive sleep apnea on CPAP Paroxysmal atrial fibrillation Pure hypercholesterolemia Transient ischemic attack Surgical History Surgical History History of right inguinal hernia repair Family History Family History Sibling Family history of type 1 diabetes mellitus Social History Social History Social History: Surrogate decision maker: Denise Ly, spouse. Code status: Full code. Years smoked: 10 Smoking status: Former smoker Tobacco type: cigarettes Second hand tobacco smoke exposure: No Smoking end date: 09/06/84 Additional smoking assessment comments: Pt smokes occasional cigar while [place] the [place]. Hasn't smoked in 4yrs Alcohol intake: current Alcohol use details: occasional beer Substance use: never Substance use type: does not use Lack of Transportation: No Lack of Food: Never True Current Housing: I Have Housing Concerned About Future Housing: No Difficulty Paying Gas/Electric Bills: No Difficulty Paying for Meds: No Currently Unemployed: No Education: High School Diploma/GED Difficulty w/ Childcare or Family Care: No Living arrangements: with family Additional living arrangements comments: The patient lives with his in [place]. Occupation/Education: retired Additional occupation/education comments: Retired from working in a [employer]. Spiritual care concerns: No Meds Home Medications and Allergies Home Medications Medication Instructions Recorded Confirmed Type aspirin 81 mg tablet 81 mg PO BID 03/08/20 03/28/23 History pen needle, diabetic 29 gauge x See Rx Instructions .Route 12/10/21 03/28/23 Rx 1/2 (BD Ultra-Fine Original Pen .COMPLEX #100 syringes Needle) mupirocin 2 % topical ointment 1 applic topical DAILY #15 grams 02/04/22 03/28/23 Rx pioglitazone 30 mg tablet 30 mg PO DIRECTED #90 tabs 07/15/22 03/28/23 Rx amlodipine 10 mg tablet
[2023-04-08 21:57] VITALS: BP 154/90; PULSE 89; RESP 18; O2SAT 98
[2023-04-08 23:08] VITALS: BP 133/48; PULSE 88; RESP 16; TEMP 36.5; O2SAT 98
--- NOTE | 2023-04-08 23:09 | ADMGEN ---
This patient, Kevin Ly, was admitted to Medical Room 347-01. Patient/family oriented to hospital policies and general routines including ID bracelet, bed and alarms, visiting hours, pain management, procedures, bathroom and other care routines, personal items, smoking policy, room service/diet, and visiting hours. Information on how to activate the Rapid Response Team has been discussed. Patient/Family are encouraged to report perceived risks to care and to ask questions if they do not understand what they are told or what they should do.
[2023-04-08 23:17] LABS: Hematocrit 42.2 % (42.0-52.0); Hemoglobin 13.5 g/dL (14.0-18.0)
[2023-04-08 23:23] LABS: Glucose Point of Care 124 mg/dl (65-105)
[2023-04-09 05:31] LABS: Hematocrit 40.5 % (42.0-52.0); Hemoglobin 12.9 g/dL (14.0-18.0); Mean Corpuscular HGB Conc 31.9 g/dl (32-36); Mean Corpuscular Hemoglobin 30.9 pg (26-34); Mean Corpuscular Volume 96.9 fl (80-100); Mean Platelet Volume 11.9 fl (7.4-10.4); Platelet Count Result 174 k/mm3 (150-375); Red Blood Count 4.18 M/mm3 (4.6-6.20); Red Cell Distribution Width 14.1 % (11.5-14.5); White Blood Count 6.5 K/mm3 (4.5-10.0)
[2023-04-09 05:41] LABS: Anion Gap 9 mmol/L (8-16); Blood Urea Nitrogen 19 mg/dL (9-20); Calcium 9.3 mg/dL (8.4-10.2); Carbon Dioxide 28 mmol/L (22-30); Chloride 101 mmol/L (98-107); Estimated CRCL calculation 104 ml/min; Estimated Glomerular Filt Rate > 60; Glucose 185 mg/dL (65-110); Magnesium 1.8 mg/dL (1.6-2.3); Sodium 138 mmol/L (137-145)
[2023-04-09 05:51] VITALS: BP 148/65; PULSE 92; RESP 20; TEMP 36.2; O2SAT 98
[2023-04-09 08:35] LABS: Glucose Point of Care 162 mg/dl (65-105)
--- NOTE | 2023-04-09 08:46 | WPDGICN ---
Assessment and Plan Assessment and plan (1) Lower GI bleeding: Code(s): K92.2 - Gastrointestinal hemorrhage, unspecified Status: Acute Assessment and Plan: The blood is bright red. It loses out suggesting anal or low rectal origin such as hemorrhoids. Oddly however he had not been straining or having difficulty bowel movements prior to the onset of that. (2) Chronic anticoagulation: Code(s): Z79.01 - keno terminal operator (current) use of anticoagulants Status: Acute Assessment and Plan: He has been on Xarelto because of paroxysmal atrial fibrillation. (3) Drop in hemoglobin: Code(s): R71.0 - Precipitous drop in hematocrit Status: Acute Assessment and Plan: Hemoglobin which had been as high as 15.5 last month and was 13.6 yesterday his dropped to 12.9. (4) Diabetes mellitus: Qualifiers: Diabetes mellitus complication status: without complication Diabetes mellitus keno terminal operator insulin use: with keno terminal operator use Diabetes mellitus type: type 2 Qualified Code(s): E11.9 - Type 2 diabetes mellitus without complications; Z79.4 - keno terminal operator (current) use of insulin Code(s): E11.9 - Type 2 diabetes mellitus without complications Status: Acute Assessment and Plan: He has been on insulin long-term. The only changes medications that he had been on Trulicity ( dulaglutide) and recently was switched to Mounjaro. Plan I told that he would need at least a flexible sigmoidoscopy after being off Xarelto for 2 days. Early is there further we could do would be tomorrow. He would like to go home today. He acknowledges is that the bleeding has not stopped and is likely to continue GI Consult Note Consult date/time: 04/09/23 08:46 HPI: Kevin Ly is a 72 year old male who is chronically anticoagulated with atrial fibrillation. He also has insulin-dependent diabetes. Six days ago, last Tuesday he states he saw blood in the bed. He had been sleeping and bright red blood was present in the bed clothes. He does not recall having difficult bowel movements prior to that. Two days later however he did have a difficult bowel movement and strained it more blood came out with that. He had been seeing blood coming out every day since then mostly with bowel movements but at times even without. He presented to emergency room where he was found have a hemoglobin of 13.6 and now it is down to 12.9. Several months ago he was over 15. He had a colonoscopy last year for screening due to history of polyps. Nothing significant was seen that would explain his bleeding at this time. [facility] Past Medical History Medical History Cerebrovascular accident Chronic anticoagulation Claudication Essential (primary) hypertension History of colon polyps Insulin dependent type 2 diabetes mellitus Morbid obesity with BMI of 40.0-44.9, adult Obstructive sleep apnea on CPAP Paroxysmal atrial fibrillation Pure hypercholesterolemia Transient ischemic attack Surgical History Surgical History History of right inguinal hernia repair Family History Family History Sibling Family history of type 1 diabetes mellitus Social History Social History Social History: Surrogate decision maker: Denise Ly, spouse. Code status: Full code. Years smoked: 25 Smoking status: Former smoker Tobacco type: cigarettes Second hand tobacco smoke exposure: No Smoking end date: 09/06/84 Additional smoking assessment comments: Pt smokes occasional cigar [place] the golf [place]. Hasn't smoked in 4yrs Alcohol intake: never Alcohol use details: occasional beer Substance use: never Substance use type: does not use Lack of Transportation: No Lack of Food: [place]
[2023-04-09 08:51] VITALS: BP 144/67; PULSE 92
[2023-04-09] MEDS: amLODIPine BESYLATE 5 MG TABLET 10 MG PO (08:52)
[2023-04-09] MEDS: LOSARTAN POTASSIUM 50 MG TABLET PO (08:53)
[2023-04-09] MEDS: GABAPENTIN 300 MG CAPSULE PO ×2 (08:53→16:59)
[2023-04-09] MEDS: FUROSEMIDE 20 MG TABLET PO (08:53)
[2023-04-09 08:54] VITALS: PULSE 95
[2023-04-09] MEDS: PANTOPRAZOLE SODIUM IV 40 MG VIAL IV PUSH (08:54)
[2023-04-09] MEDS: METOPROLOL TARTRATE 50 MG TAB PO ×2 (08:54→20:47)
[2023-04-09] MEDS: POTASSIUM CHLORIDE 20 MEQ ER TABLET 40 MEQ PO (08:54)
[2023-04-09] MEDS: MAGNESIUM SULF 2 GM/WATER 50ML 2 GM/50 ML BAG IVPB (08:55)
[2023-04-09] MEDS: BISACODYL 5 MG TABLET EC 10 MG PO ×3 (11:56→20:47)
[2023-04-09 12:25] LABS: Glucose Point of Care 191 mg/dl (65-105)
--- NOTE | 2023-04-09 13:46 | PM.IMPN ---
Progress Note: A&P Assessment and Plan (1) Lower GI bleeding: Code(s): K92.2 - Gastrointestinal hemorrhage, unspecified Status: Acute Assessment and Plan: Patient with lower GI bleed. Oozing red blood and not associated with BMs. Hgb was 15.5 last month but dropped to 12-13 range here. Xarelto on hold. Unlikely rapid transit GI bleeding so will stop PPI. Colonoscopy last March was clear. No hemorrhoids. Consider fissure or development of new hemorrhoid. GI consulted and appreciate their input. Plan for sigmoidoscopy in the morning. (2) Drop in hemoglobin: Code(s): R71.0 - Precipitous drop in hematocrit Status: Acute Assessment and Plan: As above. Continue to monitor Hgb. (3) Paroxysmal atrial fibrillation: Code(s): I48.0 - Paroxysmal atrial fibrillation Status: Acute Assessment and Plan: Patient with chronic AFib. Xarelto on hold. Rate controlled with metoprolol. Continue metoprolol. (4) Insulin dependent type 2 diabetes mellitus: Code(s): E11.9 - Type 2 diabetes mellitus without complications; Z79.4 - vermin exterminator (current) use of insulin Status: Acute Assessment and Plan: The patient's blood glucose was reviewed on 04/09 Glucose remains reasonably well controlled. Continue AccuCheks covering with sliding scale. Hypoglycemia protocol available as needed. Continue to monitor. He will be NPO after midnight. (5) Obstructive sleep apnea on CPAP: Code(s): G47.33 - Obstructive sleep apnea (adult) (pediatric) Status: Acute Assessment and Plan: CPAP ordered for the patient to use while hospitalized. (6) Essential (primary) hypertension: Code(s): I10 - Essential (primary) hypertension Status: Acute Assessment and Plan: Patient's blood pressure was reviewed on 04/09 Blood pressure was elevated but better with resuming home meds. Will continue to monitor Plan DVT Prophylaxis - SCDs. Code status - Full Subjective Date/time seen: 04/09/23 13:46 Interval history: 72yo male with pAFib on anticoagulation, DM and TIA here for rectal bleeding. He states the blood is bright red and oozing. Not associated with BMs. He may have strained prior to the onset 1 week ago but not sure. He did have an episode of straining a few days in to when he started bleeding. Lasix recently started. He has chronic pedal edema. Exam Narrative: AF 97.1 144/67 95 20 98% ra Gen - NARD Chest - bibasilar inspiratory crackles, nml RR CV - irregularly irregular Abd - Soft, obese, NT Ext - trace pedal edema Psych - Nml mood and affect Skin - Warm and dry Objective Data Vital Signs Vital Signs: Vital Signs - 24 hr 04/08/23 14:23 04/08/23 17:33 04/08/23 21:57 Temperature 97.8 F 98.2 F Pulse Rate 102 H 81 89 Respiratory Rate 18 20 18 Blood Pressure 140/65 162/83 H 154/90 H Pulse Oximetry 97 97 98 Oxygen Delivery Room Air 04/08/23 23:08 04/09/23 05:51 04/09/23 08:51 Temperature 97.7 F 97.1 F L Pulse Rate 88 92 92 Respiratory Rate 16 20 Blood Pressure 133/48 L 148/65 H 144/67 H Pulse Oximetry 98 98 Oxygen Delivery 04/09/23 08:54 04/09/23 08:47 Temperature Pulse Rate 95 Respiratory Rate Blood Pressure Pulse Oximetry Oxygen Delivery Room Air Intake/Output Intake/Output: Intake & Output 04/06/23 04/07/23 04/08/23 04/09/23 23:59 23:59 23:59 23:59 Intake Total 940 Balance 940 Meds/Results Medications: Active Medications Generic Name Dose Route Start Last Admin Trade Name Freq PRN Reason Stop Dose Admin Acetaminophen 650 mg 04/08/23 22:43 Acetaminophen 325 Mg Tablet PO Q6H PRN Mild Pain (1-3) or Fever Amlodipine Besylate 10 mg 04/09/23 09:00 04/09/23 08:52 Amlodipine Besylate 5 Mg Tablet PO 10 mg DAILY RADHA Administration Bisacodyl 10 mg 04/09/23 12:00 04/09/23 11:56 Bisacodyl 5 Mg Tablet Ec PO
[2023-04-09 14:00] VITALS: BP 133/75; PULSE 56; RESP 15; TEMP 36.5; O2SAT 97
[2023-04-09] MEDS: polyethylene glycoL 3350 238 GM BOTTLE PO (14:11)
[2023-04-09 14:46] LABS: Hematocrit 42.4 % (42.0-52.0); Hemoglobin 13.5 g/dL (14.0-18.0)
[2023-04-09 17:35] LABS: Glucose Point of Care 183 mg/dl (65-105)
[2023-04-09 20:47] VITALS: PULSE 67
[2023-04-09] MEDS: ROSUVASTATIN 10 MG TABLET 20 MG PO (20:47)
[2023-04-09 21:12] LABS: Glucose Point of Care 142 mg/dl (65-105)
[2023-04-09 21:36] VITALS: BP 146/71; PULSE 67; RESP 18; TEMP 36.6; O2SAT 99
[2023-04-10] VITALS (10 sets, daily range): BP systolic 111–155; BP diastolic 51–91; PULSE 55–90; RESP 16–20; TEMP 36.3–36.9; O2SAT 97–99; BMI 47.7
[2023-04-10 06:06] LABS: Hematocrit 42.5 % (42.0-52.0); Hemoglobin 13.4 g/dL (14.0-18.0); Mean Corpuscular HGB Conc 31.5 g/dl (32-36); Mean Corpuscular Hemoglobin 30.2 pg (26-34); Mean Corpuscular Volume 95.9 fl (80-100); Mean Platelet Volume 11.7 fl (7.4-10.4); Platelet Count Result 166 k/mm3 (150-375); Red Blood Count 4.43 M/mm3 (4.6-6.20); Red Cell Distribution Width 14.1 % (11.5-14.5); White Blood Count 6.3 K/mm3 (4.5-10.0)
[2023-04-10 06:26] LABS: Anion Gap 11 mmol/L (8-16); Blood Urea Nitrogen 11 mg/dL (9-20); Calcium 9.7 mg/dL (8.4-10.2); Carbon Dioxide 27 mmol/L (22-30); Chloride 99 mmol/L (98-107); Estimated CRCL calculation 126 ml/min; Estimated Glomerular Filt Rate > 60; Glucose 220 mg/dL (65-110); Potassium 3.4 mmol/L (3.4-5.0); Sodium 137 mmol/L (137-145)
[2023-04-10] MEDS: LACTATED RINGERS 1,000 ML 150 ML IV CONT (07:25)
[2023-04-10 08:22] LABS: Glucose Point of Care 175 mg/dl (65-105)
--- NOTE | 2023-04-10 08:38 | WPDANESEPPF ---
Anes - Initial Pre Proc Eval Procedure: Operation Date: 04/10/23 07:30 Proposed Procedures p Colonoscopy - Charli Haddad MD Date/Time: 04/10/23 08:38 Surgeon: Katherine Snow MD Pre Op Diagnosis: Rectal bleeding Patient Data Age: 72 Gender: M Height: 1.7 m Weight: 138.4 kg Last Vital Signs Temp 36.6 C 04/10/23 07:15 Pulse 90 04/10/23 07:15 Resp 20 04/10/23 07:15 BP 111/91 H 04/10/23 07:15 Pulse Ox 98 04/10/23 07:15 O2 Del Method Room Air 04/10/23 07:15 Allergies Allergy/AdvReac Type Severity Reaction Status Date / Time No Known Allergies Allergy Verified 04/08/23 23:12 Home Medications Medication Instructions Recorded Confirmed Type aspirin 81 mg tablet 81 mg PO BID 03/08/20 04/08/23 History pen needle, diabetic 29 gauge x See Rx Instructions .Route 12/10/21 04/08/23 Rx 1/2 (BD Ultra-Fine Original Pen .COMPLEX #100 syringes Needle) pioglitazone 30 mg tablet 30 mg PO DIRECTED #90 tabs 07/15/22 04/08/23 Rx amlodipine 10 mg tablet 10 mg PO DAILY #90 tabs 09/13/22 04/08/23 Rx hydrochlorothiazide 25 mg tablet 25 mg PO DAILY #90 tabs 09/13/22 04/08/23 Rx losartan 50 mg tablet 50 mg PO DAILY #90 tabs 09/13/22 04/08/23 Rx metoprolol tartrate 50 mg tablet 50 mg PO Q12HR 180 days #180 tabs 09/13/22 04/08/23 Rx blood sugar diagnostic (FreeStyle See Rx Instructions .Route 11/08/22 04/08/23 Rx Lite Strips) .COMPLEX #200 strips lancets 28 gauge (FreeStyle #200 ea 11/08/22 04/08/23 Rx Lancets) metformin 500 mg tablet,extended 2,000 mg PO DIRECTED #360 tabs 11/11/22 04/08/23 Rx release 24 hr rivaroxaban 20 mg tablet (Xarelto) See Rx Instructions .Route 01/10/23 04/08/23 Rx .COMPLEX #90 tabs furosemide 20 mg tablet 20 mg PO QAM #30 tabs 10/30/23 11/10/23 Rx tirzepatide 7.5 mg/0.5 mL 7.5 mg (0.5 mL) subcut WEEKLY #2 mL 03/28/23 04/08/23 Rx subcutaneous pen injector insulin glargine 100 unit/mL (3 55 unit (0.55 mL) subcut HS #15 mL 03/31/23 04/08/23 Rx mL) subcutaneous pen (Basaglar KwikPen U-100 Insulin) gabapentin 300 mg capsule 300 mg PO BID 04/08/23 04/08/23 History rosuvastatin 20 mg tablet 20 mg PO HS 04/08/23 04/08/23 History Laboratory Tests 04/09/23 04/09/23 04/09/23 12:19 14:42 17:30 WBC RBC Hgb 13.5 L g/dL (14.0-18.0) Hct 42.4 % (42.0-52.0) MCV MCH MCHC RDW Plt Count MPV Sodium Potassium Chloride Carbon Dioxide Anion Gap BUN Creatinine Estim Creat Clear Calc Estimated GFR Glucose POC Capillary Glucose 191 H mg/dl 183 H mg/dl (65-105) (65-105) Calcium 04/09/23 04/10/23 04/10/23 20:29 05:50 07:13 WBC 6.3 K/mm3 (4.5-10.0) RBC 4.43 L M/mm3 (4.6-6.20) Hgb 13.4 L g/dL (14.0-18.0) Hct 42.5 % (42.0-52.0) MCV 95.9 fl (80-100) MCH 30.2 pg (26-34) MCHC 31.5 L g/dl (32-36) RDW 14.1 % (11.5-14.5) Plt Count 166 k/mm3 (150-375) MPV 11.7 H fl (7.4-10.4) Sodium 137 mmol/L (137-145) Potassium 3.4 mmol/L (3.4-5.0) Chloride 99 mmol/L (98-107) Carbon Dioxide 27 mmol/L (22-30) Anion Gap 11 mmol/L (8-16) BUN 11 D mg/dL (9-20) Creatinine 0.90 mg/dL (0.7-1.3) Estim Creat Clear Calc 126 ml/min Estimated GFR > 60 (59 - ) Glucose 220 H mg/dL (65-110) POC Capillary Glucose 142 H mg/dl 175 H mg/dl (65-105) (65-105) Calcium 9.7 mg/dL (8.4-10.2) Patient hx anesthesia problems: none Family hx anesthesia problems: none Results Review: All pre-operative results and documents have been reviewed as part of the pre-operative evaluatio
--- NOTE | 2023-04-10 09:25 | PC.NURSE ---
Returned from GI Lab. Report received from ANNABEL Lopez.
[2023-04-10 09:42] LABS: Glucose Point of Care 165 mg/dl (65-105)
[2023-04-10] MEDS: amLODIPine BESYLATE 5 MG TABLET 10 MG PO (09:43)
[2023-04-10] MEDS: POTASSIUM CHLORIDE 20 MEQ ER TABLET 40 MEQ PO (09:43)
[2023-04-10] MEDS: FUROSEMIDE 20 MG TABLET PO (09:44)
[2023-04-10] MEDS: GABAPENTIN 300 MG CAPSULE PO ×2 (09:44→17:03)
[2023-04-10] MEDS: LOSARTAN POTASSIUM 50 MG TABLET PO (09:44)
[2023-04-10] MEDS: METOPROLOL TARTRATE 50 MG TAB PO ×2 (09:45→21:08)
[2023-04-10 12:24] LABS: Glucose Point of Care 276 mg/dl (65-105)
[2023-04-10] MEDS: INSULIN ASPART (*BKC) 100 UNITS/ML SUB-Q (12:55)
[2023-04-10 13:00] LABS: Glucose Point of Care 207 mg/dl (65-105)
--- NOTE | 2023-04-10 15:39 | PM.CNGS ---
Assessment and Plan Assessment and plan (1) Rectal bleeding: Code(s): K62.5 - Hemorrhage of anus and rectum Status: Acute Assessment and Plan: I reviewed the colonoscopy report and have assessed the patient. He does have a tear at a right posterior residual hemorrhoid skin tag. This could have been a previous thrombosed external hemorrhoid that then developed an ulcer in started bleeding. I do not see any further thrombosis that would need to be excised or evacuated. Will attempt topical treatment 1st to see if this helps with bleeding. Will have nurse apply Surgicel and 4 x 4 gauze to help manually stop the bleeding. Patient has already been off of his Xarelto for 3 days. Hopefully this should help with coagulation and hemostasis. Will also have patient start doing Sitz baths 2-3 times daily. Will consider cauterization with silver nitrate if bleeding persists tomorrow. Currently I do not see any need for any more invasive procedures such as hemorrhoidectomy or rubber banding, but will continue to follow along with patient for any changes. (2) Residual hemorrhoidal skin tag: Code(s): K64.4 - Residual hemorrhoidal skin tags Status: Acute (3) Obstructive sleep apnea on CPAP: Code(s): G47.33 - Obstructive sleep apnea (adult) (pediatric) Status: Acute (4) Chronic anticoagulation: Code(s): Z79.01 - long-term (current) use of anticoagulants Status: Acute (5) Paroxysmal atrial fibrillation: Code(s): I48.0 - Paroxysmal atrial fibrillation Status: Acute History of Present Illness Consult details Consult date: 04/10/23 Reason for consult: other (Rectal bleeding) Requesting physician: Charli Haddad MD Narrative: This is a 72-year-old man who I am asked to see for rectal bleeding. The patient states that he began having bleeding on Tuesday last week and has continued having bleeding every day since then. He 1st noticed the blood in his bed while sleeping at night. He denied any abdominal pain or rectal pain. He denies pain with bowel movements. He presented to the emergency department on Tuesday and GI was consulted. He underwent bowel prep yesterday and colonoscopy this morning. No deeper internal source of bleeding was identified, but he was found to have a bleeding external hemorrhoid. The patient is on long-term anticoagulation for paroxysmal AFib. He has not had a dose of his Xarelto since . Patient denies any history chronic constipation. He denies any prior history of hemorrhoid problems Review of Systems Review of Systems: All systems reviewed & are unremarkable except as noted in HPI and below Constitutional: Constitutional: Denies chills, Denies fever(s), Denies headache(s) and Denies weight loss Eyes: Eyes: Denies change in vision ENT: Denies dizziness, Denies headache(s), Denies neck mass and Denies throat swelling Cardiovascular: Cardiovascular: Denies chest pain, Denies lightheadedness and Denies dyspnea Respiratory: Respiratory: Denies cough, Denies dyspnea and Denies wheezing Gastrointestinal: Gastrointestinal: Denies abdominal pain, Denies change in bowel habits, Denies nausea and Denies vomiting Genitourinary: Genitourinary: Denies hematuria and Denies dysuria Neurologic: Denies dizziness and Denies headache(s) Allergic/Immunologic: Allergic/Immunologic: Denies throat swelling and Denies wheezing PMF Past Medical History Medical History Cerebrovascular accident Chronic anticoagulation Claudication Essential (primary) hypertension History of colon polyps Insulin dependent type 2 diabetes mellitus Morbid obesity with BMI of 40.0-44.9, adult Obstructive sleep apnea on CPAP Paroxysmal atrial fibrillation Pure hypercholesterolemia Transient ischemic attack Surgical History Surgical History History of right ingui
[2023-04-10] MEDS: CELLULOSE OXIDIZED 2 x 3 INCH 1 PKT XX (15:55)
--- NOTE | 2023-04-10 16:30 | PM.IMPN ---
Progress Note: A&P Assessment and Plan (1) Lower GI bleeding: Code(s): K92.2 - Gastrointestinal hemorrhage, unspecified Status: Acute Assessment and Plan: Patient with lower GI bleed. Oozing red blood and not associated with BMs. Hgb was 15.5 last month but dropped to 12-13 range here and stable. Xarelto on hold. Unlikely rapid transit GI bleeding so no PPI. Colonoscopy last March was clear. No hemorrhoids. GI consulted and appreciate their input. Colonoscopy this morning showing a few large sized external hemorrhoids in the anus that were actively bleeding. Ther was persistent oozing from the the hemorrhoid on the left side. Also with multiple large sized internal hemorrhoids seen in the rectum. Continue to hold Xarelto GenSurg consulted and appreciate their input. They recommended Surgicel to the rectum which was done. Sitz baths ordered. Plan to monitor for now but consider cauterization with silver nitrate if persistent. (2) Drop in hemoglobin: Code(s): R71.0 - Precipitous drop in hematocrit Status: Acute Assessment and Plan: As above. Continue to monitor Hgb. (3) Paroxysmal atrial fibrillation: Code(s): I48.0 - Paroxysmal atrial fibrillation Status: Acute Assessment and Plan: Patient with chronic AFib. Xarelto on hold. Rate controlled with metoprolol. Continue metoprolol. (4) Insulin dependent type 2 diabetes mellitus: Code(s): E11.9 - Type 2 diabetes mellitus without complications; Z79.4 - longterm (current) use of insulin Status: Acute Assessment and Plan: The patient's blood glucose was reviewed on 04/10 Glucose remains reasonably well controlled. Diabetic diet ordered. Continue AccuCheks covering with sliding scale. Hypoglycemia protocol available as needed. Resume Lantus at about 2/3 the dose. Continue to monitor. (5) Obstructive sleep apnea on CPAP: Code(s): G47.33 - Obstructive sleep apnea (adult) (pediatric) Status: Acute Assessment and Plan: CPAP ordered for the patient to use while hospitalized. (6) Essential (primary) hypertension: Code(s): I10 - Essential (primary) hypertension Status: Acute Assessment and Plan: Patient's blood pressure was reviewed on 04/10 Blood pressure well controlled Will continue to monitor Plan DVT Prophylaxis - SCDs. Code status - Full Subjective Date/time seen: 04/10/23 16:30 Interval history: 72yo male with pAFib on anticoagulation, DM and TIA here for rectal bleeding. Still having rectal bleeding. He denies CP or SOB. Tolerated the colonoscopy well. Exam Narrative: AF 98.4 128/57 55 16 97% ra Gen - NARD sitting up in chair Chest - CTA bilaterally CV - irregularly irregular Abd - Soft, obese, NT Ext - trace pedal edema Psych - Nml mood and affect Skin - Warm and dry Objective Data Vital Signs Vital Signs: Vital Signs - 24 hr 04/09/23 20:47 04/09/23 21:36 04/10/23 06:37 Temperature 97.9 F 97.4 F L Pulse Rate 67 67 78 Respiratory Rate 18 16 Blood Pressure 146/71 H 119/75 Pulse Oximetry 99 98 Oxygen Delivery 04/10/23 07:15 04/10/23 09:01 04/10/23 09:11 Temperature 97.9 F Pulse Rate 90 77 74 Respiratory Rate 20 20 18 Blood Pressure 111/91 H 117/60 143/51 H Pulse Oximetry 98 98 97 Oxygen Delivery Room Air Room Air Room Air 04/10/23 09:21 04/10/23 09:45 04/10/23 09:56 Temperature 97.9 F Pulse Rate 72 72 82 Respiratory Rate 20 18 Blood Pressure 126/54 L 120/55 L Pulse Oximetry 99 98 Oxygen Delivery Room Air 04/10/23 09:35 04/10/23 14:00 Temperature 98.4 F Pulse Rate 55 L Respiratory Rate 16 Blood Pressure 128/57 L Pulse Oximetry 97 Oxygen Delivery Room Air Intake/Output Intake/Output: Intake & Output 04/07/23 04/08/23 04/09/23 04/10/23 23:59 23:59 23:59 23:59 Intake Total 2150 1300 Balance 2150 1300 Meds/Results Medications:
[2023-04-10 17:29] LABS: Glucose Point of Care 149 mg/dl (65-105)
[2023-04-10] MEDS: ROSUVASTATIN 10 MG TABLET 20 MG PO (21:08)
[2023-04-10] MEDS: INSULIN GLARGINE (*BKC) 100 UNITS/ML 40 UNITS SUB-Q (21:08)
[2023-04-10 21:27] LABS: Glucose Point of Care 192 mg/dl (65-105)
[2023-04-11 05:30] VITALS: BP 144/73; PULSE 74; RESP 18; TEMP 36.6; O2SAT 97
[2023-04-11 05:32] LABS: Hematocrit 38.5 % (42.0-52.0); Hemoglobin 12.5 g/dL (14.0-18.0); Mean Corpuscular HGB Conc 32.5 g/dl (32-36); Mean Corpuscular Hemoglobin 31.2 pg (26-34); Mean Platelet Volume 11.5 fl (7.4-10.4); Platelet Count Result 164 k/mm3 (150-375); Red Blood Count 4.01 M/mm3 (4.6-6.20); White Blood Count 6.3 K/mm3 (4.5-10.0)
[2023-04-11 05:44] LABS: Anion Gap 9 mmol/L (8-16); Blood Urea Nitrogen 12 mg/dL (9-20); Calcium 9.3 mg/dL (8.4-10.2); Carbon Dioxide 27 mmol/L (22-30); Chloride 102 mmol/L (98-107); Estimated CRCL calculation 78 ml/min; Estimated Glomerular Filt Rate > 60; Glucose 193 mg/dL (65-110); Potassium 3.5 mmol/L (3.4-5.0); Sodium 138 mmol/L (137-145)
--- NOTE | 2023-04-11 07:07 | WPDGIPROGNO ---
Progress Note: A&P Assessment and Plan (1) Lower GI bleeding: Code(s): K92.2 - Gastrointestinal hemorrhage, unspecified Status: Acute Assessment and Plan: Bleeding has stopped since seen by surgery. 04/11/23His hemoglobin is down somewhat at 12.9. (2) Chronic anticoagulation: Code(s): Z79.01 - extermination supervisor (current) use of anticoagulants Status: Acute Assessment and Plan: He has been on Xarelto because of paroxysmal atrial fibrillation. I would consider stain ulcer also at least 2 more days. (3) Drop in hemoglobin: Code(s): R71.0 - Precipitous drop in hematocrit Status: Acute Assessment and Plan: Hemoglobin which had been as high as 15.5 last month and was 13.6 yesterday his dropped to 12.9. 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 The only changes medications that he had been on Trulicity ( dulaglutide) and recently was switched to Mounjaro. Plan From my perspective he can be discharged today. I gave him recommendations to help reduce further bleeding such as not to sit on the toilet more than 2 or 3 minutes at a time. He apparently goes into the bathroom with his cellphone and lingers. Subjective Date/time seen: 04/11/23 07:07 Dr. Soto saw him yesterday and treated his external hemorrhoidal bleeding topically. A gauze was placed which has been effective. There was consideration he might need a silver nitrate treatment but since there has been no further bleeding this probably will not be necessary. He has had no bleeding since and wishes to go home. Exam Const: General: cooperative and healthy appearing Nutritional Appearance: obese Orientation/consciousness: patient oriented x3 HENMT: Head: normal to inspection Ears: hearing grossly normal bilaterally Mouth: Yes Normal oral and palatal mucosa present Eyes: General: appearance normal, both eyes and all related structures Neck: Neck: normal visual inspection Chest: Chest palpation & inspection: normal inspection of the chest Resp: Effort & Inspection: normal respiratory effort Auscultation: clear to auscultation bilaterally Cardio: Rate: regular rate Rhythm: regular rhythm GI: Inspection: normal to inspection GI Palp: Yes Soft to palpation, No Guarding due to palpation present (GI) and Yes No hepatosplenomegaly present Auscultation: normal bowel sounds Skin: General skin exam: normal color and no jaundice Neuro: General: patient oriented x3 Speech: normal speech Objective Data Vital Signs Vital Signs: Vital Signs - 24 hr 04/10/23 07:15 04/10/23 09:01 04/10/23 09:11 Temperature 36.6 C Pulse Rate 90 77 74 Respiratory Rate 20 20 18 Blood Pressure 111/91 H 117/60 143/51 H Pulse Oximetry 98 98 97 Oxygen Delivery Room Air Room Air Room Air 04/10/23 09:21 04/10/23 09:45 04/10/23 09:56 Temperature 36.6 C Pulse Rate 72 72 82 Respiratory Rate 20 18 Blood Pressure 126/54 L 120/55 L Pulse Oximetry 99 98 Oxygen Delivery Room Air 04/10/23 09:35 04/10/23 14:00 04/10/23 21:02 Temperature 36.9 C 36.9 C Pulse Rate 55 L 87 Respiratory Rate 16 18 Blood Pressure 128/57 L 155/79 H Pulse Oximetry 97 98 Oxygen Delivery Room Air 04/10/23 21:08 04/11/23 05:30 Temperature 36.6 C Pulse Rate 87 74 Respiratory Rate 18 Blood Pressure 144/73 H Pulse Oximetry 97 Oxygen Delivery Intake/Output Intake/Output: Intake & Output 04/08/23 04/09/23 04/10/23 04/11/23 23:59 23:59 23:59 23:59 Intake Total 2149 2019 150 Balance
--- NOTE | 2023-04-11 07:32 | WPDANESPN ---
Anes - Prog Note Post-Op Date/Time: 04/11/23 07:32 Cardiovascular status: normal Respiratory status: normal Airway patency: baseline Mental status: baseline Post-Op hydration status: normal Vital Signs: Last Vital Signs Temp 36.6 C 04/11/23 05:30 Pulse 74 04/11/23 05:30 Resp 18 04/11/23 05:30 BP 144/73 H 04/11/23 05:30 Pulse Ox 97 04/11/23 05:30 O2 Del Method Room Air 04/10/23 09:35 Pain Score (VAS): 0 I/O: Intake & Output 04/10/23 04/10/23 04/11/23 15:59 23:59 07:59 Intake Total 800 720 150 Balance 800 720 150 Laboratory Tests 04/11/23 05:18 04/11/23 05:18 04/10/23 04/10/23 04/10/23 07:13 09:17 12:06 WBC RBC Hgb Hct MCV MCH MCHC RDW Plt Count MPV Sodium Potassium Chloride Carbon Dioxide Anion Gap BUN Creatinine Estim Creat Clear Calc Estimated GFR Glucose POC Capillary Glucose 175 H 165 H 276 H Calcium 04/10/23 04/10/23 04/10/23 12:54 17:02 21:01 WBC RBC Hgb Hct MCV MCH MCHC RDW Plt Count MPV Sodium Potassium Chloride Carbon Dioxide Anion Gap BUN Creatinine Estim Creat Clear Calc Estimated GFR Glucose POC Capillary Glucose 207 H 149 H 192 H Calcium 04/11/23 05:18 WBC 6.3 RBC 4.01 L Hgb 12.5 L Hct 38.5 L MCV 96.0 MCH 31.2 MCHC 32.5 RDW 14.0 Plt Count 164 MPV 11.5 H Sodium 138 Potassium 3.5 Chloride 102 Carbon Dioxide 27 Anion Gap 9 BUN 12 Creatinine 1.00 Estim Creat Clear Calc 78 Estimated GFR > 60 Glucose 193 H POC Capillary Glucose Calcium 9.3 Post-procedural complaints: none Patient Feedback: Patient satisfied with anesthetic care.
[2023-04-11 07:56] VITALS: O2SAT 97
[2023-04-11 08:26] LABS: Glucose Point of Care 170 mg/dl (65-105)
[2023-04-11 09:00] VITALS: BP 133/76; PULSE 73
[2023-04-11 09:02] VITALS: PULSE 73
[2023-04-11] MEDS: GABAPENTIN 300 MG CAPSULE PO (09:02)
[2023-04-11] MEDS: LOSARTAN POTASSIUM 50 MG TABLET PO (09:02)
[2023-04-11] MEDS: METOPROLOL TARTRATE 50 MG TAB PO (09:02)
[2023-04-11] MEDS: amLODIPine BESYLATE 5 MG TABLET 10 MG PO (09:02)
[2023-04-11] MEDS: FUROSEMIDE 20 MG TABLET PO (09:02)
[2023-04-11 12:22] LABS: Glucose Point of Care 200 mg/dl (65-105)
--- NOTE | 2023-04-11 12:48 | PM.PNGS ---
Progress Note: A&P Assessment and Plan (1) Residual hemorrhoidal skin tag: Code(s): K64.4 - Residual hemorrhoidal skin tags Status: Acute Assessment and Plan: Ok to discharge Recommend resuming Xarelto tomorrow if no more bleeding Will send Rx for Anusol-HC cream Follow up PRN. (2) Rectal bleeding: Code(s): K62.5 - Hemorrhage of anus and rectum Status: Acute (3) Paroxysmal atrial fibrillation: Code(s): I48.0 - Paroxysmal atrial fibrillation Status: Acute (4) Chronic anticoagulation: Code(s): Z79.01 - lobsterman (current) use of anticoagulants Status: Acute Subjective Subjective Date/Time Seen: 04/11/23 12:48 Interval history: No more rectal bleeding. No pain. Exam GI: Rectal Exam: other (No more bleeding from hemorrhoid skin tag.) Objective Data Vital Signs Vital Signs: Vital Signs - 24 hr 04/10/23 14:00 04/10/23 21:02 04/10/23 21:08 Temperature 36.9 C 36.9 C Pulse Rate 55 L 87 87 Respiratory Rate 16 18 Blood Pressure 128/57 L 155/79 H Pulse Oximetry 97 98 Oxygen Delivery Fraction of Inspired Oxygen 04/11/23 05:30 04/11/23 07:56 04/11/23 09:02 Temperature 36.6 C Pulse Rate 74 73 Respiratory Rate 18 Blood Pressure 144/73 H Pulse Oximetry 97 97 Oxygen Delivery Room Air Fraction of Inspired Oxygen 21 04/11/23 09:04 04/11/23 09:00 Temperature Pulse Rate 73 Respiratory Rate Blood Pressure 133/76 Pulse Oximetry Oxygen Delivery Room Air Fraction of Inspired Oxygen Intake/Output Intake/Output: Intake & Output 04/08/23 04/09/23 04/10/23 04/11/23 23:59 23:59 23:59 23:59 Intake Total 2149 2019 510 Balance 2149 2019 510 Meds/Results Medications: Active Medications Generic Name Dose Route Start Last Admin Trade Name Freq PRN Reason Stop Dose Admin Acetaminophen 650 mg 04/08/23 22:43 Acetaminophen 325 Mg Tablet PO Q6H PRN Mild Pain (1-3) or Fever Amlodipine Besylate 10 mg 04/09/23 09:00 04/11/23 09:02 Amlodipine Besylate 5 Mg Tablet PO 10 mg DAILY RADHA Administration Dextrose 12.5 gm 04/08/23 22:43 Dextrose 50% 25 Gm/50 Ml Syringe IV PUSH PRN PRN Hypoglycemia Protocol Furosemide 20 mg 04/09/23 09:00 04/11/23 09:02 Furosemide 20 Mg Tablet PO 20 mg QAM RADHA Administration Gabapentin 300 mg 04/09/23 09:00 04/11/23 09:02 Gabapentin 300 Mg Capsule PO 300 mg BID RADHA Administration Glucagon 1 mg 04/08/23 22:43 Glucagon For Inj 1 Mg Vial IM PRN PRN Hypoglycemia Protocol Glucose 15 gm 04/08/23 22:43 Glucose Oral Gel 15 Gm Of Glucse In 37.5 Gm Tube PO PRN PRN Hypoglycemia Protocol Dextrose 1,000 mls @ 100 mls/hr 04/08/23 22:43 Dextrose 5% 1,000 Ml IVPB PRN PRN Hypoglycemia Protocol Insulin Aspart 3 - 6 units 04/09/23 08:00 04/11/23 12:26 Insulin Aspart (*Bkc) 100 Units/Ml SUB-Q Not Given TIDWM RADHA Protocol Insulin Aspart 1 - 3 units 04/09/23 21:00 04/10/23 21:05 Insulin Aspart (*Bkc) 100 Units/Ml SUB-Q Not Given HS RADHA Protocol Insulin Glargine 40 units 04/10/23 21:00 04/10/23 21:08 Insulin Glargine (*Bkc) 100 Units/Ml SUB-Q 40 units HS RADHA Administration Losartan Potassium 50 mg 04/09/23 09:00 04/11/23 09:02 Losartan Potassium 50 Mg Tablet PO 50 mg DAILY RADHA Administration Metoprolol Tartrate 50 mg 04/09/23 09:00 04/11/23 09:02 Metoprolol Tartrate 50 Mg Tab PO 50 mg Q12HR RADHA Administration Rosuvastatin Calcium 20 mg 04/09/23 21:00 04/10/23 21:08 Rosuvastatin 10 Mg Tablet PO 20 mg HS RADHA Administration Labs Labs: Laboratory Results - last 24 hr 04/10/23 04/10/23 04/10/23 12:54 17:02 21:01 WBC RBC Hgb Hct MCV MCH MCHC RDW Plt Count MPV Sodium Potassium Chloride Carbon Dioxide Anion Gap BUN Creatini
--- NOTE | 2023-04-11 13:08 | PM.DS ---
DS: Admitting Diagnosis Discharge Date 04/11/23 Admitting Diagnosis Rectal bleeding DS: Discharge Diagnosis Discharge Diagnosis (1) Lower GI bleeding: Code(s): K92.2 - Gastrointestinal hemorrhage, unspecified Status: Acute (2) Drop in hemoglobin: Code(s): R71.0 - Precipitous drop in hematocrit Status: Acute (3) Paroxysmal atrial fibrillation: Code(s): I48.0 - Paroxysmal atrial fibrillation Status: Acute (4) Insulin dependent type 2 diabetes mellitus: Code(s): E11.9 - Type 2 diabetes mellitus without complications; Z79.4 - intermediate frame tender (current) use of insulin Status: Acute (5) Obstructive sleep apnea on CPAP: Code(s): G47.33 - Obstructive sleep apnea (adult) (pediatric) Status: Acute (6) Essential (primary) hypertension: Code(s): I10 - Essential (primary) hypertension Status: Acute DS: Summary Hospital Course Reason for hospitalization: 72yo male with pAFib on anticoagulation, DM and TIA here for rectal bleeding. Please see H&P for details. Hospital Course: Patient with lower GI bleed. Oozing red blood and not associated with BMs. Hgb was 15.5 last month but dropped to 12-13 range here and stable. Xarelto was held. Unlikely rapid transit GI bleeding so no PPI. Colonoscopy last March was clear. No hemorrhoids. GI consulted and appreciate their input. Colonoscopy performed 04/10 showing a few large sized external hemorrhoids in the anus that were actively bleeding. Ther was persistent oozing from the the hemorrhoid on the left side. Also with multiple large sized internal hemorrhoids seen in the rectum. GenSurg consulted and appreciate their input. They recommended Surgicel to the rectum which was done. Sitz baths ordered. Rectal bleeding stopped. He was passing soft stools without blood. Plan to resume Xarelto tomorrow if no more bleeding. Patient overall did well and was able to be discharged home on 04/11/23. Status at Discharge Cognitive/behavioral status at discharge: stable Time Spent with Patient Time attestation: Total time spent providing and/or coordinating discharge services: 32 minutes Time spent: Greater than 30 minutes Exam Narrative: AF 98.0 133/76 73 18 97% ra Gen - NARD sitting up in chair Chest - L>R crackles better with deep inspiration. nml RR CV - irregularly irregular Abd - Soft, obese, NT Ext - trace pedal edema Psych - Nml mood and affect Skin - Warm and dry DS: Data Data Completed and Pending Labs on day of discharge: Labs from last 24 hours 04/11/23 04/11/23 04/11/23 12:17 08:21 05:18 WBC 6.3 RBC 4.01 L Hgb 12.5 L Hct 38.5 L MCV 96.0 MCH 31.2 MCHC 32.5 RDW 14.0 Plt Count 164 MPV 11.5 H Sodium 138 Potassium 3.5 Chloride 102 Carbon Dioxide 27 Anion Gap 9 BUN 12 Creatinine 1.00 Estim Creat Clear Calc 78 Estimated GFR > 60 Glucose 193 H POC Capillary Glucose 200 H 170 H Calcium 9.3 04/10/23 04/10/23 21:01 17:02 WBC RBC Hgb Hct MCV MCH MCHC RDW Plt Count MPV Sodium Potassium Chloride Carbon Dioxide Anion Gap BUN Creatinine Estim Creat Clear Calc Estimated GFR Glucose POC Capillary Glucose 192 H 149 H Calcium Discharge Plan Discharge Attending physician on discharge: Javad Dumont Consulting providers: Eron Soto; Charli Haddad Discharging Clinician: Javad Dumont Anticipated Discharge Date/Time: 04/11/23 13:13 Patient Disposition: Home, Self-Care Activity: as tolerated Diet: high fiber Discharge Instructions: Please check glucose before meals and before bed. Record and bring into your doctor for review. Check blood pressure 1 to 2 times a day. Record and bring into your doctor for review. Call your doctor if your blood pressure is greater than 180/110. Avoid NSAIDs (ibuprofen, naproxen, Al
== END 2023-04-11 13:56 | disposition home or self-care (01) | DRG 394 ==
LOC: ANHED 15:03 → ANH3MEDSUR 18:44 → ANH3MED 22:43
PROVIDERS: Emergency Medicine; Internal Medicine Gastroenterology; Physician Assistant; Admitting Provider Internal Medicine; Emergency Provider Emergency Medicine; PCP Family Medicine; Visit Provider Internal Medicine
PROC: 0DJD8ZZ Inspection of Lower Intestinal Tract, Via Natural or Artificial Opening Endoscopic (ICD-10-PCS; CPT 45378; principal; 2023-04-10 07:30)
DX: K64.4 Residual hemorrhoidal skin tags (principal); R71.0 Precipitous drop in hematocrit; I10 Essential (primary) hypertension; I48.0 Paroxysmal atrial fibrillation; K64.8 Other hemorrhoids; E78.00 Pure hypercholesterolemia, unspecified; G47.33 Obstructive sleep apnea (adult) (pediatric); Z79.01 Long term (current) use of anticoagulants; Z79.82 Long term (current) use of aspirin; Z79.4 Long term (current) use of insulin; Z86.73 Personal history of transient ischemic attack (TIA), and cerebral infarction without residual deficits; Z86.010 Personal history of colon polyps; Z87.891 Personal history of nicotine dependence
CPT/HCPCS: 36415; 80048; 80053; 82948; 83735; 85014; 85018; 85025; 85027; 85610; 85730; 86850; 86900; 86901; 99285; A9270; C9113; G0378; J0171; J1815; J3475; J7120

== ENCOUNTER 2023-05-12 09:08 | Outpatient (CLI) | payer MEDICARE, BC, SELFPAY ==
[2023-05-12 09:30] LABS: Basophils Percent Auto 0.4 % (0.2-1.2); Eosinophils Absolute Auto 0.2 K/mm3 (0-0.3); Eosinophils Percent Auto 2.4 % (0-4.4); Hematocrit 44.3 % (42.0-52.0); Hemoglobin 14.3 g/dL (14.0-18.0); Immature Granulocyte Absolute 0.04 K/mm3 (0.00-0.031); Immature Granulocyte Percent A 0.5 % (0-0.5); Lymphocytes Absolute Auto 2.16 K/mm3 (0.9-3.2); Lymphocytes Percent Auto 27.3 % (18.3-44.2); Mean Corpuscular HGB Conc 32.3 g/dl (32-36); Mean Corpuscular Hemoglobin 30.2 pg (26-34); Mean Corpuscular Volume 93.5 fl (80-100); Mean Platelet Volume 11.3 fl (7.4-10.4); Monocytes Absolute Auto 0.7 K/mm3 (0.1-0.6); Monocytes Percent Auto 9.4 % (2.6-8.5); Neutrophils Absolute Auto 4.8 K/mm3 (1.3-6.7); Platelet Count Result 214 k/mm3 (150-375); Red Blood Count 4.74 M/mm3 (4.6-6.20); Red Cell Distribution Width 13.3 % (11.5-14.5); White Blood Count 7.9 K/mm3 (4.5-10.0)
== END 2023-05-12 09:09 | disposition home or self-care (01) ==
LOC: ANHLAB 09:11
PROVIDERS: PCP Family Medicine; Visit Provider Physician Assistant
DX: D62 Acute posthemorrhagic anemia (principal)
CPT/HCPCS: 36415; 85025

== ENCOUNTER 2023-07-21 10:55 | Outpatient (CLI) | payer MEDICARE, BC, SELFPAY ==
[2023-07-21 11:43] LABS: Hemoglobin A1C 6.8 % (<5.7)
[2023-07-21 11:45] LABS: Alanine Aminotransferase 16 U/L (6-50); Albumin Level 4.2 g/dL (3.5-5.1); Alkaline Phosphatase 63 U/L (38-126); Anion Gap 9 mmol/L (8-16); Aspartate Amino Transferase 23 U/L (17-59); Bilirubin,Total 1.2 mg/dL (0.2-1.3); Blood Urea Nitrogen 15 mg/dL (9-20); Calcium 10.1 mg/dL (8.4-10.2); Carbon Dioxide 31 mmol/L (22-30); Chloride 97 mmol/L (98-107); Estimated Glomerular Filt Rate 59; Glucose 85 mg/dL (65-110); Potassium 2.9 mmol/L (3.4-5.0); Sodium 137 mmol/L (137-145)
== END 2023-07-21 10:56 | disposition home or self-care (01) ==
LOC: ANHLAB 10:57
PROVIDERS: PCP Family Medicine; Visit Provider Family Medicine
DX: E11.9 Type 2 diabetes mellitus without complications (principal); Z79.4 Long term (current) use of insulin
CPT/HCPCS: 36415; 80053; 83036

== ENCOUNTER 2023-07-26 14:35 | Emergency (ER) | payer MEDICARE, BC, SELFPAY ==
[2023-07-26 14:54] VITALS: BP 103/53; PULSE 86; RESP 16; TEMP 36.8; O2SAT 98
--- NOTE | 2023-07-26 16:02 | ED.WOUNDLAC ---
HPI - Wound/Laceration General Chief Complaint: Wound/Laceration Stated Complaint: Lac to right hand Time Seen by Provider: 07/26/23 15:10 Source: patient, family, RN notes reviewed and old records reviewed Mode of arrival: ambulatory Limitations: no limitations History of Present Illness HPI narrative: 73 year old male who presents to [facility] care accompanied by with complaints of laceration to his right thenar area of his hand when he was cutting potatoes using a mandolin slicer just prior to arrival. Patient is on blood thinner daily and reports that he has had copious bleeding from site has applied pressure dressing. Patient has 4cm U shaped flap type of laceration to his hand. Patient reports that his tetanus is up to date. Onset (ago): minute(s) (within 30 minutes prior to arrival) Location: other (right crook aspect of hand thenar region) Patient tetanus UTD: Yes Treatments prior to arrival: bandage (pressure) Related Data Home Medications Medication Instructions Recorded Confirmed aspirin 81 mg tablet 81 mg PO BID 03/08/20 07/26/23 Allergies Allergy/AdvReac Type Severity Reaction Status Date / Time No Known Allergies Allergy Verified 07/26/23 09:01 Review of Systems Review of Systems: CONSTITUTIONAL: Denies fever, chills, or sweats. CARDIOVASCULAR: Denies chest pain, palpitations, or edema. RESPIRATORY: Denies cough or dyspnea. SKIN: Reports laceration to the palm region of his right hand thenar region bleeding present is on blood thinners daily MUSCULOSKELETAL: Denies musculoskeletal pain NEUROLOGIC: Denies numbness, or weakness. All systems reviewed & are unremarkable except as noted in HPI and below PMFSH Past Medical History Medical History Cerebrovascular accident Chronic anticoagulation Claudication Essential (primary) hypertension History of colon polyps Insulin dependent type 2 diabetes mellitus Morbid obesity with BMI of 40.0-44.9, adult Obstructive sleep apnea on CPAP Paroxysmal atrial fibrillation Pure hypercholesterolemia Transient ischemic attack Surgical History Surgical History History of right inguinal hernia repair Family History Family History Sibling Family history of type 1 diabetes mellitus Social History Social History (Reviewed 07/28/23 @ 07:16 by KANDIS Riley Social History: Surrogate decision maker: Denise Ly, spouse. Code status: Full code. Smoking packs per day: 1 Smoking cigarettes per day: 20.0 Years smoked: 25 Smoking pack-years: 25.00 Smoking status: Former smoker Tobacco type: cigarettes Second hand tobacco smoke exposure: No Smoking end date: 09/06/84 Additional smoking assessment comments: Pt smokes [place] cigar [place]. Hasn't smoked in 4yrs Alcohol intake: never Alcohol use details: occasional beer Substance use: never Substance use type: does not use Do You Feel Safe in your Home?: Yes Lack of Transportation: No Lack of Food: Never True Current Housing: I Have Housing Concerned About Future Housing: No Difficulty Paying Gas/Electric Bills: No Difficulty Paying for Meds: No Currently Unemployed: YES Education: High School Diploma/GED Difficulty w/ Childcare or Family Care: No Living arrangements: with family Additional living arrangements comments: The patient lives with his in [place]. Occupation/Education: retired Additional occupation/education comments: Retired from working in a [employer]. Gender identity (if verbalized by the patient): Male Sexual Orientation (if Verbalized by the Patient): Straight or Heterosexual Spiritual care concerns: No Comments At time of signature, agree with nursing past medical, surgical, social and family history. There is no relevant family h
== END 2023-07-26 16:14 | disposition home or self-care (01) ==
PROVIDERS: Emergency Provider Registered Nurse; PCP Family Medicine
DX: S61.411A Laceration without foreign body of right hand, initial encounter (principal); E11.9 Type 2 diabetes mellitus without complications; I10 Essential (primary) hypertension; I48.0 Paroxysmal atrial fibrillation; Z79.82 Long term (current) use of aspirin; Z86.73 Personal history of transient ischemic attack (TIA), and cerebral infarction without residual deficits; Z87.891 Personal history of nicotine dependence; W27.4XXA Contact with kitchen utensil, initial encounter
CPT/HCPCS: 12002; 99213; G0463

== ENCOUNTER 2023-08-03 14:58 | Outpatient (CLI) | payer MEDICARE, BC, SELFPAY ==
[2023-08-03 16:37] LABS: Anion Gap 9 mmol/L (8-16); Blood Urea Nitrogen 18 mg/dL (9-20); Carbon Dioxide 32 mmol/L (22-30); Chloride 95 mmol/L (98-107); Estimated Glomerular Filt Rate > 60; Glucose 110 mg/dL (65-110); Potassium 3.3 mmol/L (3.4-5.0); Sodium 136 mmol/L (137-145)
== END 2023-08-03 14:59 | disposition home or self-care (01) ==
PROVIDERS: PCP Family Medicine; Visit Provider Family Medicine
DX: E87.6 Hypokalemia (principal)
CPT/HCPCS: 36415; 80048

== ENCOUNTER 2023-11-17 09:18 | Outpatient (CLI) | payer MEDICARE, BC, SELFPAY ==
[2023-11-17 10:07] LABS: Alanine Aminotransferase 19 U/L (6-50); Albumin Level 4.5 g/dL (3.5-5.1); Alkaline Phosphatase 119 U/L (38-126); Anion Gap 9 mmol/L (4-12); Aspartate Amino Transferase 28 U/L (17-59); Bilirubin,Total 1.5 mg/dL (0.2-1.3); Blood Urea Nitrogen 11 mg/dL (9-20); Calcium 9.7 mg/dL (8.4-10.2); Carbon Dioxide 27 mmol/L (22-30); Chloride 104 mmol/L (98-107); Estimated Glomerular Filt Rate > 60; Glucose 102 mg/dL (65-110); Hemoglobin A1C 6.6 % (<5.7); Potassium 3.3 mmol/L (3.4-5.0); Sodium 140 mmol/L (137-145)
== END 2023-11-17 09:19 | disposition home or self-care (01) ==
PROVIDERS: PCP Family Medicine; Visit Provider Family Medicine
DX: E11.9 Type 2 diabetes mellitus without complications (principal); Z79.4 Long term (current) use of insulin
CPT/HCPCS: 36415; 80053; 83036

== ENCOUNTER 2024-03-29 09:18 | Outpatient (CLI) | payer MEDICARE, BC, SELFPAY ==
[2024-03-29 10:11] LABS: Hematocrit 47.7 % (42.0-52.0); Hemoglobin 15.8 g/dL (14.0-18.0); Mean Corpuscular HGB Conc 33.1 g/dl (32-36); Mean Corpuscular Hemoglobin 30.6 pg (26-34); Mean Corpuscular Volume 92.3 fl (80-100); Mean Platelet Volume 11.3 fl (7.4-10.4); Platelet Count Result 207 k/mm3 (150-375); Red Blood Count 5.17 M/mm3 (4.6-6.20); Red Cell Distribution Width 13.8 % (11.5-14.5); White Blood Count 6.4 K/mm3 (4.5-10.0)
[2024-03-29 10:25] LABS: Hemoglobin A1C 6.6 % (<5.7)
[2024-03-29 10:28] LABS: Alanine Aminotransferase 19 U/L (6-50); Albumin Level 4.3 g/dL (3.5-5.1); Alkaline Phosphatase 89 U/L (38-126); Anion Gap 10 mmol/L (4-12); Aspartate Amino Transferase 28 U/L (17-59); Bilirubin,Total 0.8 mg/dL (0.2-1.3); Blood Urea Nitrogen 17 mg/dL (9-20); Calcium 9.6 mg/dL (8.4-10.2); Carbon Dioxide 29 mmol/L (22-30); Chloride 103 mmol/L (98-107); Cholesterol 122 mg/dL (0-200); Estimated Glomerular Filt Rate > 60; Glucose 144 mg/dL (65-110); HDL Direct 37 mg/dL; Potassium 3.8 mmol/L (3.4-5.0); Sodium 142 mmol/L (137-145); Triglycerides 72 mg/dL (<150)
[2024-03-29 10:39] LABS: LDL Cholesterol Direct 63 mg/dL
[2024-03-29 10:50] LABS: Creatinine Urine 84.9 mg/dL
[2024-03-29 10:54] LABS: MALB Creatinine Ratio 9.9 mg/g (0-30); Microalbumin Urine Random 8.4 mg/L (0-16.7)
[2024-03-29 10:59] LABS: Prostate Specific Antigen 0.8 ng/mL (< OR = 4.0)
[2024-03-29 11:04] LABS: Vitamin D 25 Hydroxy 19.8 ng/mL
== END 2024-03-29 09:19 | disposition home or self-care (01) ==
PROVIDERS: PCP Family Medicine; Visit Provider Family Medicine
DX: E11.65 Type 2 diabetes mellitus with hyperglycemia (principal); E78.2 Mixed hyperlipidemia; I10 Essential (primary) hypertension; R35.1 Nocturia; Z79.4 Long term (current) use of insulin
CPT/HCPCS: 36415; 80053; 80061; 82043; 82306; 83036; 84153; 84443; 85027

== ENCOUNTER 2024-07-26 07:06 | Outpatient (CLI) | payer MEDICARE, BC, SELFPAY ==
[2024-07-26 07:32] LABS: Alanine Aminotransferase 17 U/L (6-50); Alkaline Phosphatase 82 U/L (38-126); Anion Gap 11 mmol/L (4-12); Aspartate Amino Transferase 20 U/L (17-59); Bilirubin,Total 1.1 mg/dL (0.2-1.3); Blood Urea Nitrogen 15 mg/dL (9-20); Calcium 9.8 mg/dL (8.4-10.2); Carbon Dioxide 29 mmol/L (22-30); Chloride 103 mmol/L (98-107); Estimated Glomerular Filt Rate > 60; Glucose 110 mg/dL (65-110); Potassium 3.3 mmol/L (3.4-5.0); Sodium 143 mmol/L (137-145)
[2024-07-26 08:30] LABS: Vitamin D 25 Hydroxy 70.8 ng/mL
[2024-07-27 03:30] LABS: Hemoglobin A1C 5.9 % (<5.7)
== END 2024-07-26 07:07 | disposition home or self-care (01) ==
PROVIDERS: PCP Family Medicine; Visit Provider Family Medicine
DX: E11.9 Type 2 diabetes mellitus without complications (principal); E55.9 Vitamin D deficiency, unspecified; Z79.4 Long term (current) use of insulin
CPT/HCPCS: 36415; 80053; 82306; 83036

== ENCOUNTER 2024-11-28 09:43 | Outpatient (CLI) | payer MEDICARE, BC, SELFPAY ==
--- OUTSIDE RECORDS SUMMARY | 2024-11-28 09:55 | XMS_ITS | Referral Summary ---
Author Organization [facility] [address] [facility] [facility] [address] [place] [address] Care Team Providers Care Relocation Associate Name Role Phone Ray Rubio MD Primary Care Provider Encounters Date Type Department Care Team Description 10/25/2024 8:45 AM CDT Office Visit [facility] Cardiology [address] [facility] [address] [place] [address] Anna Almanza MD Persistent atrial fibrillation (HCC) (Primary Dx); Need for lipid screening; Hypertension associated with diabetes (HCC); Mixed diabetic hyperlipidemia associated with type 2 diabetes mellitus (HCC); Chronic anticoagulation from Last 3 Months Allergies No known active allergies Medications rosuvastatin (CRESTOR) 20 mg tabletIndicatio ns:History of CVA (cerebrovascula r accident) without residual deficits Take 1 tablet (20 mg total) by mouth daily 30 tablet 11 09/18/2021 Active amLODIPine (NORVASC) 10 mg tablet Take 1 tablet (10 mg total) by mouth daily 08/22/2021 Active gabapentin (NEURONTIN) 100 mg capsule Take 1 capsule (100 mg total) by mouth every 8 (eight) hours as needed 09/07/2021 Active insulin glargine,hum.re c.anlog (BASAGLAR KWIKPEN U-100 INSULIN SUBQ) Inject 40 Units under the skin nightly 03/08/2020 Active losartan (COZAAR) 50 mg tablet Take 1 tablet (50 mg total) by mouth daily 08/22/2021 Active metFORMIN XR (GLUCOPHAGE XR) 500 mg 24 hr tablet Take 2 tablets (1,000 mg total) by mouth daily 08/22/2021 Active metoprolol tartrate (LOPRESSOR) 25 mg immediate release tablet Take 1 tablet (25 mg total) by mouth every 12 (twelve) hours 08/06/2021 Active Xarelto 20 mg tablet Take 1 tablet (20 mg total) by mouth daily 08/06/2021 Active aspirin 81 mg enteric coated tablet Take 1 tablet (81 mg total) by mouth 2 (two) times a day Active tirzepatide (MOUNJARO) 15 mg/0.5 mL pen injector 02/07/2023 Active furosemide (LASIX) 20 mg tablet Take 1 tablet (20 mg total) by mouth daily 90 tablet 3 03/12/2024 Active Active Problems Problem Noted Date Diagnosed Date Hypotension due to drugs 08/03/2023 Persistent atrial fibrillation 01/13/2022 Hypertension associated with diabetes 01/13/2022 Mixed diabetic hyperlipidemi a associated with type 2 diabetes mellitus 01/13/2022 H/O: CVA (cerebrovascular accident) 01/13/2022 Morbid obesity with BMI of 40.0-44.9, adult 12/28 SURY on CPAP 01/13/2022 Chronic anticoagulation 01/13/2022 Resolved Problems Problem Noted Date Diagnosed Date Resolved Date Localized edema 02/16/2023 10/25/2024 Shortness of breath 07/21/2022 10/26/19 25 Social History Tobacco Use Types Packs/Day Years Used Date Smoking Tobacco: Former Cigars Smokeless Tobacco: Never Sex and Gender Information Value Date Recorded Sex Assigned at Not on file 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 Gender Identity Not on file Sexual Orientation Not on file Last Filed Vital Signs Vital Sign Reading Time Taken Comments Blood Pressure 134/72 10/25/2024 8:34 AM CDT Pulse 71 10/25/2024 8:34 AM CDT Temperature - - Respiratory Rate - - Oxygen Saturation 98% 10/25/2024 8:34 AM CDT Inhaled Oxygen Concentration - - Weight 102.4 kg (225 lb 11.2 oz) 10/25/2024 8:34 AM CDT Height 167.6 cm (5' 6) 10/25/2024 8:34 AM CDT Body Mass Index 36.43 10/25/2024 8:34 AM CDT Plan of Treatment Not on file Procedures Procedure Name Priority Date/Time Associated Diagnosis Comments POCT LIPID PANEL Routine 10/25/2024 8:58 AM CDT Need for lipid screening from Last 3 Months Results * POCT lipid panel (10/25/2024 8:58 AM CDT) Cholesterol, POC 110 <200 MG/DL Comment:GLU = 150 HDL, POC 45 >=40 mg/dL Triglycerides, POC 64 <=149 mg/dL LDL Cholesterol POC 52 <=129 mg/dL Chol/HDL Ratio, POC 1.2 NONE Non-HDL Cholesterol, POC 65 NONE mg/dL Cholesterol Total, POC 110 30 - 199 mg/dL Capillary blood 10/25/2024 8 :58 AM CDT [facility] Carli Almanza MD POINT OF CARE TEST KARELY ESCALERA Final Result from Last 3 Months Insurance MEDICARE MEDICARE [facility] MEDICARE SUPPLEMENT Care Teams Relocation Associate Relationship Specialty Start Date End Date Ray Rubio MD [address] [place] [address] PCP - General Family Medicine 08/05/21
--- OUTSIDE RECORDS SUMMARY | 2024-11-28 09:55 | XMS_ITS | Clinical Summary ---
Author Organization [facility] [address] Address [address] [place] [address] Care Team Providers Care Lab Asst Name Role Phone Ray Rubio MD Primary Care Provider Allergies No known active allergies Medications rosuvastatin [...] 10/25/2024 Shortness of breath 07/21/2022 10/26/19 25 Encounters Date Type Department Care Team Description 10/25/2024 8:45 AM CDT Office Visit [facility] Cardiology [address] [place] [id number] Anna Almanza MD Persistent atrial fibrillation (HCC) (Primary Dx); Need for lipid screening; Hypertension associated with diabetes (HCC); Mixed diabetic hyperlipidemia associated with type 2 diabetes mellitus (HCC); Chronic anticoagulation from Last 3 Months Surgical History Surgery Date Site/Laterality Comments HERNIA REPAIR 10/28/1962 Medical History Medical History Date Comments Diabetes mellitus (HCC) 03/08/2018 Heart disease 08/07/2019 Hypertension 03/08/2018 Sleep apnea 08/06/2021 Family History Medical History Relation Name Comments Diabetes Brother Leonardo Ly Fire Father Diabetes Mother Sada Ly Relation Name Status Comments Brother Leonardo Ly (Age 44) Father (Age 72) Mother Sada Ly (Age 40) Social History Tobacco Use Types Packs/Day Years Used Date Smoking Tobacco: Former Cigars Smokeless Tobacco: Never Sex and Gender Information Value Date Recorded Sex Assigned at Not on file 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 Gender Identity Not on file Sexual Orientation Not on file Obstetrics History Last Filed Vital Signs Vital Sign Reading [...] 10/25/2024 8:34 AM CDT Plan of Treatment Health Maintenance Due Date Last Done Comments Albumin Creatinine Ratio, Urine 1949 Colon Cancer Screening-Colonoscopy 1949 Depression Screening 1949 Fall Risk Assessment 1949 Hemoglobin A1C 1949 Hepatitis C Screening 1949 eGFR 1949 Dilated Eye Exam 1949 Foot Exam 1949 DTaP/Tdap/Td Vaccine (1 - Tdap) 1960 Hepatitis B Screening 1967 Pneumococcal vaccine 65+ (1 of 2 - PCV) 1968 Zoster Vaccine (1 of 2) 1999 Abdominal Aortic Aneurysm (A AA) Screen 2014 Well Visit 65+ 2014 Covid-19 Vaccine (4 - 2023-2 5 season) 2024 05/05/2021, 08/20/2020, 07/23/2020 Influenza Vaccine (Season Ended) 2025 04/07/2021, 03/05/2020, 04/16/2019 Lipid Panel 10/25/2025 10/25/2024, 02/28, 02/16/2023, Additional history exists Procedures Procedure Name Priority Date/Time Associated Diagnosis [...] Capillary blood 10/25/2024 8 :58 AM CDT [facility] Carli Almanza MD POINT OF CARE TEST KARELY ESCALERA Final Result from Last 3 Months Insurance MEDICARE MEDICARE [facility] MEDICARE SUPPLEMENT Care Teams Lab Asst Relationship Specialty Start Date End Date Ray Rubio MD [address] [place] [address] PCP - General Family Medicine 08/05/21
[2024-11-28 11:19] LABS: Alanine Aminotransferase 18 U/L (6-50); Albumin Level 4.3 g/dL (3.5-5.1); Alkaline Phosphatase 79 U/L (38-126); Anion Gap 8 mmol/L (4-12); Aspartate Amino Transferase 30 U/L (17-59); Bilirubin,Total 1.0 mg/dL (0.2-1.3); Blood Urea Nitrogen 21 mg/dL (9-20); Calcium 9.8 mg/dL (8.4-10.2); Carbon Dioxide 29 mmol/L (22-30); Chloride 101 mmol/L (98-107); Estimated Glomerular Filt Rate > 60; Glucose 131 mg/dL (65-110); Potassium 3.7 mmol/L (3.4-5.0); Sodium 138 mmol/L (137-145); Total Protein 7.3 g/dL (6.3-8.2)
[2024-11-28 12:50] LABS: Hemoglobin A1C. 6.0 % (<5.7)
== END 2024-11-28 09:44 | disposition home or self-care (01) ==
PROVIDERS: PCP Family Medicine; Visit Provider Family Medicine
DX: E11.9 Type 2 diabetes mellitus without complications (principal); Z79.4 Long term (current) use of insulin; E55.9 Vitamin D deficiency, unspecified
CPT/HCPCS: 36415; 80053; 82306; 83036

== ENCOUNTER 2025-04-05 07:28 | Outpatient (CLI) | payer MEDICARE, BC, SELFPAY ==
[2025-04-05 08:59] LABS: Hematocrit 47.7 % (42.0-52.0); Hemoglobin 16.2 g/dL (14.0-18.0); Mean Corpuscular HGB Conc 34.0 g/dl (32-36); Mean Corpuscular Hemoglobin 31.3 pg (26-34); Mean Corpuscular Volume 92.1 fl (80-100); Platelet Count Result 189 k/mm3 (150-375); Red Blood Count 5.18 M/mm3 (4.6-6.20); White Blood Count 7.2 K/mm3 (4.5-10.0)
[2025-04-05 09:16] LABS: Alanine Aminotransferase 23 U/L (6-50); Albumin Level 4.1 g/dL (3.5-5.1); Alkaline Phosphatase 73 U/L (38-126); Anion Gap 6 mmol/L (4-12); Aspartate Amino Transferase 31 U/L (17-59); Bilirubin,Total 1.1 mg/dL (0.2-1.3); Blood Urea Nitrogen 14 mg/dL (9-20); Calcium 9.6 mg/dL (8.4-10.2); Carbon Dioxide 31 mmol/L (22-30); Chloride 102 mmol/L (98-107); Cholesterol 112 mg/dL (0-200); Estimated Glomerular Filt Rate > 60; Glucose 95 mg/dL (65-110); HDL Direct 40 mg/dL; Potassium 3.5 mmol/L (3.4-5.0); Sodium 139 mmol/L (137-145); Total Protein 7.1 g/dL (6.3-8.2); Triglycerides 66 mg/dL (<150)
[2025-04-05 09:24] LABS: Add Urine Microscopic? YES; Appearance Urine Clear (Clear); Glucose Urine UA Trace mg/dL (Negative); Leukocyte Esterase Ur Negative LEU/UL (Negative); Nitrate Urine Negative (Negative); Specific Grav Ur 1.023 (1.001-1.035)
[2025-04-05 09:49] LABS: MALB Creatinine Ratio 6.6 mg/g (0-30)
[2025-04-05 09:51] LABS: Thyroid Stimulating Hormone 2.380 uIU/mL (0.465-4.680)
[2025-04-05 10:06] LABS: Hemoglobin A1C 6.2 % (<5.7)
== END 2025-04-05 07:29 | disposition home or self-care (01) ==
PROVIDERS: PCP Family Medicine; Visit Provider Family Medicine
DX: E11.9 Type 2 diabetes mellitus without complications (principal); Z79.4 Long term (current) use of insulin; I10 Essential (primary) hypertension; I48.91 Unspecified atrial fibrillation; E78.00 Pure hypercholesterolemia, unspecified; E55.9 Vitamin D deficiency, unspecified; Z00.00 Encounter for general adult medical examination without abnormal findings
CPT/HCPCS: 36415; 80053; 80061; 81001; 82043; 82306; 83036; 84443; 85027

== ENCOUNTER 2025-05-03 14:56 | Outpatient (CLI) | payer MEDICARE, BC, SELFPAY ==
--- NOTE | 2025-05-03 | ECG_ITS ---
Test Date: 2025-05-03 15:21:20 Measurements Intervals Drew Rate: 58 P: 0 AR: 0 QRS: 24 QRSD: 98 T: 8 QT: 430 QTc: 426 Interpretive Statements ATRIAL FIBRILLATION WITH SLOW VENTRICULAR RESPONSE ABNORMAL ECG No previous ECG available for comparison Electronically Signed On 05-03-2025 15:32:39 [employer]CRETE [employer] FINISHING SUPERVISOR by López Sawant D.O.
== END 2025-05-03 14:57 | disposition home or self-care (01) ==
PROVIDERS: PCP Family Medicine; Visit Provider Nurse Anesthetist, Certified Registered
DX: Z01.818 Encounter for other preprocedural examination (principal)
CPT/HCPCS: 93005